=== PATIENT | female | born 1960 ===

== ENCOUNTER 2021-03-11 19:10 | Inpatient (IN) ==
[2021-03-11] MEDS ORDERED: ONDANSETRON 4 MG/2 ML VIAL IV PRN ×2 (19:25→20:48)
[2021-03-11] MEDS ORDERED: SENNOSIDES 1 TABLET PO PRN ×2 (19:25→20:48)
[2021-03-11] MEDS ORDERED: oxyCODONE/APAP 5/325MG TABLET PO PRN ×2 (19:25→20:48)
[2021-03-11] MEDS ORDERED: IPRATROPIUM/ALBUTEROL 3 ML AMPUL.NEB NEB PRN ×2 (19:25→20:48)
[2021-03-11] MEDS ORDERED: LACTULOSE 20 GM/30 ML ORAL.SOL PO PRN ×2 (19:25→20:48)
[2021-03-11] MEDS ORDERED: ACETAMINOPHEN 325 MG TABLET PO PRN ×2 (19:25→20:48)
[2021-03-11] MEDS ORDERED: cefTRIAXone 1 GM in DEXTROSE 5% IN WATER 50 ML IV SCH (19:30)
[2021-03-11] MEDS ORDERED: 0.9 % SODIUM CHLORIDE 1,000 ML IV SCH ×2 (19:30→20:48)
[2021-03-11] MEDS ORDERED: morphine 2 MG/ML VIAL IV PRN ×2 (19:32→20:48)
--- NOTE | 2021-03-11 19:47 | Internal Med History&Physical ---
HPI History of Present Illness Patient information: Note initiated : 03/11/21 at 7:47 pm Service Date, if different from initiated Date: [] Patient: Gina Simms a 60 y/o F admitted on for Spontaneous Bacterial Peritonitis. Chief Complaint: [SBP and hepatic encephalopathy] History of present illness: Ms. Simms is a 60 year old F history of recently diagnosed alcoholic cirrhosis, presenting with altered mental status, increased lethargy, and abdominal distention with pain. Patient has a chronic history of alcoholism and was recently diagnosed with alcoholic hepatitis on February 20, 2021. Extensive imaging modalities including MRI of the abdomen was done and no tumors or lesions were found. Patient was being referred to GI DrSamira And she refused to stop drinking alcohol upon recommendations by the GI specialist. She has been receiving multiple episodes of therapeutic paracentesis for her symptomatic ascites in the last episode was done 2 days ago. Today she was found by family member to have altered mental status, increasing lethargy, and she was also complaining of abdominal distention and pain. Last reported alcohol consumption's was couple days ago. She does not presented to outside ER and the working diagnosis of hepatic encephalopathy with spontaneous bacterial peritonitis was made. Serum ammonia level, right blood cell count, lactic acid, procalcitonin, serum creatinine were all found to be elevated with the exact n umber documented in the transfer paperwork. Serum sodium was reported to be in the 120s range. She was initially hypotensive with blood pressure in the 70s over 50s mmHg range, and after 30 cc/kg NS fluid boluses was given, her blood pressures response now back to the 90s over 70s mmHg range. Admission request made due to bed unavailability and the lack of capacity to perform therapeutic/diagnostic paracentesis. Review of Systems ROS unobtainable: due to mental status PFSH PFSH All Active Problems (Updated 03/11/21 @ 19:43 by Jesus Torrez MD) Stage 1 acute kidney injury (Acute) Clinical sepsis (Acute) Noncompliance with medication regimen (Acute) Coagulopathy (Acute) SBP (spontaneous bacterial peritonitis) (Acute) Hyponatremia (Acute) Hypokalemia (Acute) Alcoholic cirrhosis of liver with ascites (Acute) Hepatic encephalopathy (Acute) EXAM Constitutional General appearance: cooperative and no acute distress Head Head exam: Present atraumatic and normocephalic Eye Eye exam: Present EOMI and PERRL ENT ENT exam: Present mucous membranes moist, normal exam and normal external ear exam Neck Neck exam: Present normal inspection; Absent lymphadenopathy, tenderness and thyromegaly Respiratory Respiratory exam: Absent accessory muscle use, respiratory distress and wheezes Cardiovascular Cardiovascular exam: Present normal rate and rhythm; Absent JVD GI/Abdominal GI/Abdominal exam: Present normal bowel sounds, distended, hypoactive bowel sounds and organomegaly; Absent tenderness Additional comments: fluid wave Caput medusae Extremities Exam Extremities exam: Present full ROM, normal capillary refill and normal inspection; Absent tenderness Neurological Exam Neurological exam: Present alert, CN II-XII intact and oriented X3; Absent motor sensory deficit Psychiatric Psychiatric exam: Present normal affect and normal mood; Absent anxious and depressed Skin Skin exam: Present dry and intact Additional comments: jaundice Spider angiomata A/P Assessment and plan (1) Stage 1 acute kidney injury: Status: Acute (2) Clinical sepsis: Status: Acute (3) Noncompliance with medication regimen: Status: Acute (4) Coagulopathy: Status: Acute (5) SBP (spontaneous bacterial peritonitis): Status: Acute (6) Hyponatremia: Status: Acute (7) Hypokalemia: Status: Acute (8) Alcoholic cirrhosis of liver with ascites: Status: Acute (9) Hepatic encephalopathy: Status: Acute Narrative A/P Narrative: Assessment and Plans: 1. Severe sepsis with suspected spontaneous bacterial peritonitis: Admit to inpatient PCU Serial lactic acid Blood culture X2 Diagnostic and therapeutic paracentesis scheduled on 03/12/21 s/p 30cc/kg NS fluid bolus in the ED, followed by NS@70cc/hr Albumin already given in the ED cbc w/ auto diff in the morning to trend WBC Rocephin Tylenol PRN fever Zofran IV PRN nausea vomiting Since patient is noncompliant to potassium, will need to avoid Lasix or any other diuretics 2. Alcoholic cirrhosis with ascites and hepatic encephalopathy: Lactulose 20gm PO BID titrate to achieve 3 large BMs per day No need to trend serum ammonia level; instead focus on clinical mental status Non selective beta dewey as well as Spironolactone when blood pressure tolerate Continue to activities counselor patient to quit alcohol consumption 3. Coagulopathy secondary to alcoholic cirrhosis: Vitamin K 10mg IV once to be given in the ED in preparation for the planned paracentesis 4. Hyponatremia: s/p 30cc/kg NS fluid bolus in the ED, followed by NS@70cc/hr Since chronicity is unknown, goal of correction is 8-10 points in the first 24 hours BMP q6hr to trend serum sodium level 5. Stage 1 acute kidney injury: DDx: Hepatorenal syndrome Avoid nephrotoxic agents s/p 30cc/kg NS fluid bolus in the ED, followed by NS@70cc/hr BMP q6hr to trend kidney functions GI ppx: Protonix PO DVT ppx: SCDs Code status: Full Prognosis: Poor Disposition: inpatient PCU Time Spent With Patient Time: Total time spent is greater than 50% in coordination of care (as documented) at patient's floor/unit and/or counseling patient: Total time spent with greater than 50% in coordination of care (as documented) a t patient's floor/unit and/or counseling patient:: Greater than 35 minutes
[2021-03-11] MEDS ORDERED: LACTULOSE 20 GM/30 ML ORAL.SOL PO SCH ×2 (21:00)
[2021-03-11] MEDS ORDERED: PANTOPRAZOLE 40 MG TABLET PO SCH ×2 (21:00)
[2021-03-11] MEDS ORDERED: DOCUSATE SODIUM 100 MG CAPSULE PO SCH (21:00)
[2021-03-11] MEDS ORDERED: 0.9 % SODIUM CHLORIDE 10 ML SYRINGE IV SCH ×3 (22:00)
[2021-03-11] MEDS ORDERED: cefTRIAXone 1 GM VIAL IV SCH (22:00)
[2021-03-11] MEDS: DOCUSATE SODIUM 100 MG CAPSULE PO SCH (22:57)
[2021-03-11] MEDS ORDERED: PANTOPRAZOLE 40 MG VIAL IV ONE (23:21)
[2021-03-11] MEDS ORDERED: LACTULOSE 20 GM/30 ML ORAL.SOL ONE (23:21)
[2021-03-11] MEDS: PANTOPRAZOLE 40 MG VIAL IV SCH (23:35)
[2021-03-12 02:11] LABS: ALT/SGPT 58 U/L (<40); AST/SGOT 158 U/L (<32); Albumin 2.7 gm/dL (3.2-5.2); Alkaline Phosphatase 175 U/L (39-117); Bilirubin,Direct 9.3 mg/dL (<0.3); Bilirubin,Total 14.3 mg/dL (0.1-1.0); Blood Urea Nitrogen 28 mg/dL (6-20); Calcium 8.5 mg/dL (8.6-10.4); Carbon Dioxide 22 mmol/L (22-30); Chloride 86 mmol/L (96-108); Globulin 2.6 gm/dL (2.2-3.7); Glomerular Filtration Rate 80; Glucose 106 mg/dL (70-105); Lactate Dehydrogenase 151 U/L (135-225); Phosphorous 4.2 mg/dL (2.5-4.5); Triglycerides 87 mg/dL (<150); Uric Acid 3.7 mg/dL (2.5-8.0)
[2021-03-12 02:21] LABS: Appearance,Urine CLOUDY (Clear); Bilirubin,Urine Negative (Negative); Color,Urine AMBER; Culture Indicated,Urine No; Glucose,Urine (UA) Negative (Negative); Ketones,Urine Negative (Negative); Leukocyte Esterase,Urine Negative /ug (Negative); Mucus,Urine MANY /hpf; Nitrate,Urine Negative (Negative); Protein,Urine 30 mg/dL (Negative); Specific Gravity,Urine 1.026 (1.000-1.035); Urine Blood >=1.0 mg/dL (Negative); Urine Hyaline Cast 36 /lph (0-2); Urine RBC 63 /hpf (0-3); Urine Squamous Epithelial Cell 8 /hpf (0-4); Urine WBC 8 /hpf (0-4)
[2021-03-12] MEDS ORDERED: 0.9 % SODIUM CHLORIDE 10 ML SYRINGE IV SCH (06:00)
[2021-03-12 06:55] LABS: Basophils # (Auto) 0.07 K/mcL (0.00-0.20); Basophils % (Auto) 0.3 % (0.0-2.0); Eosinophils % (Auto) 0.8 % (0.0-7.0); Hematocrit 31.4 % (36.0-48.0); Hemoglobin 11.3 g/dL (12.0-15.0); Lymphocytes # (Auto) 1.07 K/mcL (1.50-4.80); Lymphocytes % (Auto) 4.5 % (15.0-49.0); Mean Cell Volume 110.6 fL (80.0-100.0); Mean Platelet Volume 9.6 fL (7.4-10.4); Monocytes # (Auto) 2.07 K/mcL (0.10-0.90); Monocytes % (Auto) 8.7 % (1.0-12.0); Neutrophils % (Auto) 85.7 % (38.0-78.0); Platelet Count 158 K/mcL (140-440); RBC 2.84 M/mcL (4.00-5.20); WBC 23.9 K/mcL (4.5-11.0)
[2021-03-12 07:29] LABS: ALT/SGPT 59 U/L (<40); AST/SGOT 155 U/L (<32); Albumin 2.4 gm/dL (3.2-5.2); Albumin/Globulin Ratio 0.9 (1.0-2.3); Alkaline Phosphatase 174 U/L (39-117); Bilirubin,Total 13.2 mg/dL (0.1-1.0); Blood Urea Nitrogen 29 mg/dL (6-20); Calcium 8.2 mg/dL (8.6-10.4); Carbon Dioxide 20 mmol/L (22-30); Chloride 90 mmol/L (96-108); Globulin 2.6 gm/dL (2.2-3.7); Glucose 102 mg/dL (70-105)
[2021-03-12] MEDS: PANTOPRAZOLE 40 MG VIAL IV SCH ×2 (07:54→17:07)
[2021-03-12] MEDS: DOCUSATE SODIUM 100 MG CAPSULE PO SCH ×2 (07:55→22:07)
[2021-03-12] MEDS ORDERED: LACTULOSE 20 GM/30 ML ORAL.SOL PR SCH ×2 (09:00→23:02)
--- NOTE | 2021-03-12 09:22 | Internal Med Progress Note ---
SUBJECTIVE Subjective Patient information: Note initiated : 03/12/21 at 9:16 am Service Date, if different from initiated Date: [] Patient: Gina Simms 60 y/o F admitted on 03/11/21 for Hepatic E ncephalopathy and SBP. Chief Complaint: [Hepatic encephalopathy, spontaneous bacterial peritonitis] 03/12/21: No bowel movement overnight. Afebrile. Cultures no growth to date. Serum sodium level 125 this morning. Otherwise there was no other major overnight events. Patient is non-verbal. Constitutional Vitals: Vital Signs Temp Pulse Resp BP Pulse Ox 36.7 C 105 H 21 82/65 92 03/12/21 08:01 03/12/21 06:01 03/12/21 08:01 03/12/21 08:01 03/12/21 08:01 Period Temp Pulse Resp BP Sys/Bailey Pulse Ox Last 24 Hr 36.3 C-36.7 C 104-109 17-25 78-111/46-74 88-97 Intake and Output 03/11/21 03/12/21 03/12/21 21:59 05:59 13:59 Intake Total 1999 133 Output Total 0 400 Balance 1999 Weight 56.699 kg Intake & Output: Intake & Output 03/11/21 03/12/21 03/12/21 21:59 05:59 13:59 Intake Total 1999 133 Output Total 0 400 Balance 1999 Weight 56.699 kg Intake: IV 133 Sodium Chloride 0.9% 1,000 ml @ 133 100 mls/hr IV .Q10H [facility] Rx#: [id number] IV - Manual Only 1999 Output: Void Amount 0 200 Emesis 200 Other: Urine Appearance Clear Urine Color Yellow Brown [place] Urine Odor Strong General appearance: cooperative and no acute distress Head Head exam: Present atraumatic and normocephalic Eye Eye exam: Present EOMI and PERRL ENT ENT exam: Present mucous membranes moist, normal exam and normal external ear exam Neck Neck exam: Present normal inspection; Absent lymphadenopathy, tenderness and thyromegaly Respiratory Respiratory exam: Absent accessory muscle use, respiratory distress and wheezes Cardiovascular Cardiovascular exam: Present normal rate and rhythm; Absent JVD GI/Abdominal GI/Abdominal exam: Present normal bowel sounds, distended, firm and organomegaly; Absent tenderness Additional comments: Caput Medusae Extremities Exam Extremities exam: Present full ROM, normal capillary refill and normal inspection; Absent tenderness Neurological Exam Neurological exam: Present altered and CN II-XII intact; Absent alert, motor sensory deficit and oriented X3 Additional comments: Lethargic Psychiatric Psychiatric exam: Present normal affect and normal mood; Absent anxious and depressed Skin Skin exam: Present dry and intact Additional comments: Jaundice Spider angiomata on face and chest wall OBJ DATA Labs CBC & Chem 7: 03/12/21 05:06 03/12/21 05:07 Labs: Abnormal Lab Results 03/12/21 03/12/21 03/12/21 05:07 05:06 01:42 WBC 23.9 H RBC 2.84 L Hgb 11.3 L Hct 31.4 L MCV 110.6 H MCH 39.8 H RDW 15.0 H Neut % (Auto) 85.7 H Lymph % (Auto) 4.5 L Lymph # (Auto) 1.07 L Collin # (Auto) 2.07 H Absolute Neutrophils 20.46 H VBG Lactic Acid Sodium 125 L 122 L Chloride 90 L 86 L Carbon Dioxide 20 L BUN 29 H 28 H Glucose 106 H Calcium 8.2 L 8.5 L Total Bilirubin 13.2 H 14.3 H Direct Bilirubin 9.3 H GGT 75 H AST 155 H 158 H ALT 59 H 58 H Alkaline Phosphatase 174 H 175 H Total Protein 5.0 L 5.3 L Albumin 2.4 L 2.7 L Albumin/Globulin Ratio 0.9 L Urine Appearance Urine Protein Urine Occult Blood Urine Urobilinogen Urine RBC Urine WBC Ur Squamous Epith Cells Hyaline Casts Urine Mucus 03/12/21 03/11/21 00:10 21:33 WBC RBC Hgb Hct MCV MCH RDW Neut % (Auto) Lymph % (Auto) Lymph # (Auto) Collin # (Auto) Absolute Neutrophils VBG Lactic Acid 3.0 H Sodium Chloride Carbon Dioxide BUN Glucose Calcium Total Bilirubin Direct Bilirubin GGT AST ALT Alkaline Phosphatase Total Protein Albumin Albumin/Globulin Ratio Urine Appearance Cloudy A Urine Protein 30 A Urine Occult Blood >=1.0 A Urine Urobilinogen 4.0 A Urine RBC 63 H Urine WBC 8 H Ur Squamous Epith Cells 8 H Hyaline Casts 36 H Urine Mucus Many A Meds: Medications Acetaminophen (Acetaminophen 325 Mg Tablet) 650 mg PO Q6HP PRN; Protocol PRN Reason: Per Pain Protocol/Fever > 101 Albuterol/Ipratropium (Ipratropium/Albuterol 3 Ml Ampul.Neb) 3 ml NEB Q4HRT PRN PRN Reason: Wheezing Ceftriaxone Sodium (Ceftriaxone 1 Gm Vial) 1 gm IV Q24H [facility] Last Admin: 03/11/21 22:35 Dose: 1 gm Documented by: Docusate Sodium (Docusate Sodium 100 Mg Capsule) 100 mg PO BID [facility] Last Admin: 03/12/21 07:55 Dose: Not Given Documented by: Sodium Chloride (Sodium Chloride 0.9%) 1,000 mls @ 70 mls/hr IV .[id number] [facility] Lactulose (Lactulose 20 Gm/30 Ml Oral.Talia) 10 gm PO DAILYP PRN PRN Reason: Constipation Lactulose (Lactulose 20 Gm/30 Ml Oral.Talia) 20 gm HI BID [facility] Morphine Sulfate (Morphine 2 Mg/Ml Vial) 2 mg IV Q4HP PRN; Protocol PRN Reason: Per Pain Protocol Ondansetron HCl (Ondansetron 4 Mg/2 Ml Vial) 4 mg IV Q4HP PRN; Protocol PRN Reason: Nausea And Vomiting Last Admin: 03/11/21 22:29 Dose: 4 mg Documented by: Oxycodone/Acetaminophen (Oxycodone/Apap 5/325mg Tablet) 1 tab PO Q4HP PRN; Protocol PRN Reason: Per Pain Protocol Pantoprazole Sodium (Pantoprazole 40 Mg Vial) 40 mg IV BIDAC [facility] Last Admin: 03/12/21 07:54 Dose: 40 mg Documented by: Senna (Sennosides 1 Tablet) 2 tab PO HSP PRN PRN Reason: Constipation Sodium Chloride (0.9 % Sodium Chloride 10 Ml Syringe) 10 ml IV Q8 [facility] Last Admin: 03/12/21 05:15 Dose: 10 ml Documented by: A/P Assessment and plan (1) Stage 1 acute kidney injury: Status: Acute (2) Clinical sepsis: Status: Acute (3) Noncompliance with medication regimen: Status: Acute (4) Coagulopathy: Status: Acute (5) SBP (spontaneous bacterial peritonitis): Status: Acute (6) Hyponatremia: Status: Acute (7) Hypokalemia: Status: Acute (8) Alcoholic cirrhosis of liver with ascites: Status: Acute (9) Hepatic encephalopathy: Status: Acute Narrative A/P Narrative: Assessment and Plans: 1. Severe sepsis with suspected spontaneous bacterial peritonitis: Stays in inpatient PCU Serial lactic acid Blood culture X2, no growth to date Diagnostic and therapeutic paracentesis scheduled on 03/12/21 s/p 30cc/kg NS fluid bolus in the ED, followed by NS@70cc/hr Albumin already given in the ED cbc w/ auto diff in the morning to trend WBC Rocephin Tylenol PRN fever Zofran IV PRN nausea vomiting Since patient is noncompliant to potassium, will need to avoid Lasix or any other diuretics 2. Alcoholic cirrhosis with ascites and hepatic encephalopathy: Lactulose 20gm PO BID titrate to achieve 3 large BMs per day No need to trend serum ammonia level; instead focus on clinical mental status Non selective beta dewey as well as Spironolactone when blood pressure tolerate Continue to res counselor patient to quit alcohol consumption Speech therapy swallowing evaluation 3. Coagulopathy secondary to alcoholic cirrhosis: Vitamin K 10mg IV once to be given in the ED in preparation for the planned paracentesis PT INR daily 4. Hyponatremia: s/p 30cc/kg NS fluid bolus in the ED, followed by NS@70cc/hr Since chronicity is unknown, goal of correction is 8-10 points in the first 24 hours BMP q6hr to trend serum sodium level 5. Stage 1 acute kidney injury: DDx: Hepatorenal syndrome Avoid nephrotoxic agents s/p 30cc/kg NS fluid bolus in the ED, followed by NS@70cc/hr BMP q6hr to trend kidney functions GI ppx: Protonix PO DVT ppx: SCDs Code status: Full Prognosis: Poor Disposition: inpatient PCU Time Spent With Patient Time: Total time spent is greater than 50% in coordination of care (as documented) at patient's floor/unit and/or counseling patient: QUALITY Stroke Symptom Onset Unknown: No VTE Deep Vein Thrombosis/Pulmonary Embolism Present on Admission: No
[2021-03-12 10:47] LABS: INR 1.9 (0.9-1.1); Prothrombin Time 22.6 sec (11.9-14.5)
[2021-03-12] MEDS: 0.9 % SODIUM CHLORIDE 1,000 ML IV SCH ×2 (12:01→14:12)
[2021-03-12] MEDS ORDERED: NOREPINEPHRINE BITARTRATE 16 MG in 0.9 % SODIUM CHLORIDE 234 ML IV PRN ×2 (13:00→13:45)
[2021-03-12] MEDS ORDERED: 0.9 % SODIUM CHLORIDE 250 ML IV SCH (13:00)
[2021-03-12] MEDS ORDERED: ACETAMINOPHEN 325 MG TABLET PO PRN (13:45)
[2021-03-12] MEDS ORDERED: IPRATROPIUM/ALBUTEROL 3 ML AMPUL.NEB NEB PRN (13:45)
[2021-03-12] MEDS ORDERED: ONDANSETRON 4 MG/2 ML VIAL IV PRN (13:45)
[2021-03-12] MEDS ORDERED: 0.9 % SODIUM CHLORIDE 1,000 ML IV SCH (13:45)
[2021-03-12] MEDS ORDERED: LACTULOSE 20 GM/30 ML ORAL.SOL PO PRN (13:45)
[2021-03-12] MEDS ORDERED: oxyCODONE/APAP 5/325MG TABLET PO PRN (13:45)
[2021-03-12] MEDS ORDERED: SENNOSIDES 1 TABLET PO PRN (13:45)
[2021-03-12] MEDS: 0.9 % SODIUM CHLORIDE 250 ML IV SCH (14:10)
[2021-03-12] MEDS: 0.9 % SODIUM CHLORIDE 10 ML SYRINGE IV SCH ×2 (14:11→22:26)
--- NOTE | 2021-03-12 14:39 | Ultrasound Report ---
History: Liver failure with recurrent ascites TECHNIQUE: A moderate amount of ascites is seen in the abdomen and pelvis. Largest pocket was localized laterally in the right mid abdomen. The overlying skin was prepped with ChloraPrep then anesthetized with 1% lidocaine. Using ultrasound guidance a multi sidehole drainage catheter was inserted. 3.9 L of yellowish-orange fluid was removed. Some of the fluid was sent to laboratory for analysis. Most of the visualized fluid was aspirated. She tolerated the procedure well without complication. IMPRESSION: Successful paracentesis removing 3.9 L fluid Interpreted and Authenticated by: Filiberto Giron 03/12/21
[2021-03-12] MEDS ORDERED: cefTRIAXone 1 GM VIAL IV SCH (15:00)
[2021-03-12 15:16] LABS: Glucose,Peritoneal Fluid 63 mg/dL; Total Protein,Peritoneal Fluid 1.6 gm/dL
[2021-03-12 15:43] LABS: Monocyte,Peritoneal Fluid 32 %; Neutrophils,Peritoneal Fluid 67 %; Nucleated Cel,Peritoneal Fluid 7335 /cumm; RBC,Peritoneal Fluid <50,000 /cumm
[2021-03-12 16:37] LABS: Blood Urea Nitrogen 32 mg/dL (6-20); Carbon Dioxide 20 mmol/L (22-30); Chloride 90 mmol/L (96-108); Glomerular Filtration Rate 80; Glucose 88 mg/dL (70-105)
[2021-03-12] MEDS: MEROPENEM 1 GM in 0.9 % SODIUM CHLORIDE 50 ML IV SCH (19:10)
[2021-03-12] MEDS: DEXTROSE 5%-NS 1,000 ML IV SCH (19:26)
[2021-03-12] MEDS ORDERED: cefTRIAXone 1 GM in DEXTROSE 5% IN WATER 50 ML IV SCH (19:30)
[2021-03-12] MEDS: LACTULOSE 20 GM/30 ML ORAL.SOL PR SCH (20:26)
[2021-03-12] MEDS ORDERED: GABAPENTIN 100 MG CAPSULE PO SCH (21:00)
[2021-03-12] MEDS ORDERED: PREGABALIN 150 MG CAPSULE PO SCH (21:00)
[2021-03-12 21:36] LABS: Blood Urea Nitrogen 33 mg/dL (6-20); Calcium 7.8 mg/dL (8.6-10.4); Carbon Dioxide 19 mmol/L (22-30); Chloride 92 mmol/L (96-108); Glomerular Filtration Rate 80; Glucose 90 mg/dL (70-105)
[2021-03-12] MEDS: GABAPENTIN 100 MG CAPSULE PO SCH (22:07)
[2021-03-13] MEDS: MEROPENEM 1 GM in 0.9 % SODIUM CHLORIDE 50 ML IV SCH ×4 (01:13→21:16)
[2021-03-13] MEDS: 0.9 % SODIUM CHLORIDE 250 ML IV SCH ×2 (02:50→13:58)
[2021-03-13 04:04] LABS: Blood Urea Nitrogen 34 mg/dL (6-20); Calcium 7.8 mg/dL (8.6-10.4); Carbon Dioxide 19 mmol/L (22-30); Chloride 98 mmol/L (96-108); Glomerular Filtration Rate 80; Glucose 166 mg/dL (70-105)
[2021-03-13] MEDS: 0.9 % SODIUM CHLORIDE 10 ML SYRINGE IV SCH ×5 (05:20→21:28)
[2021-03-13] MEDS: PANTOPRAZOLE 40 MG VIAL IV SCH ×2 (07:21→17:29)
[2021-03-13 07:22] LABS: POC INR 1.4 (0.8-1.2); POC Pro Time 16.8 sec (11.9-14.5)
[2021-03-13 07:32] LABS: Basophils # (Auto) 0.09 K/mcL (0.00-0.20); Basophils % (Auto) 0.4 % (0.0-2.0); Eosinophils # (Auto) 0.01 K/mcL (0.00-0.70); Eosinophils % (Auto) 0 % (0.0-7.0); Hematocrit 32.8 % (36.0-48.0); Hemoglobin 11.9 g/dL (12.0-15.0); Lymphocytes # (Auto) 1.39 K/mcL (1.50-4.80); Lymphocytes % (Auto) 6.6 % (15.0-49.0); Mean Cell Volume 110.4 fL (80.0-100.0); Mean Corpuscular HGB Conc 36.3 g/dL (31.0-36.0); Mean Platelet Volume 9.8 fL (7.4-10.4); Monocytes # (Auto) 2.09 K/mcL (0.10-0.90); Monocytes % (Auto) 9.9 % (1.0-12.0); Neutrophils % (Auto) 83.1 % (38.0-78.0); Platelet Count 157 K/mcL (140-440); RBC 2.97 M/mcL (4.00-5.20); Red Cell Distribution Width 15.5 % (11.5-14.5)
[2021-03-13] MEDS ORDERED: MIDAZOLAM 2 MG/2 ML VIAL ONE (09:25)
[2021-03-13] MEDS ORDERED: MIDAZOLAM 2 MG/2 ML VIAL IV ONE (09:45)
[2021-03-13] MEDS: DOCUSATE SODIUM 100 MG CAPSULE PO SCH ×2 (09:53→20:59)
--- NOTE | 2021-03-13 10:05 | XRay Report ---
HISTORY: Central line placement FINDINGS: A right internal jugular catheter has been inserted. The tip is in the superior vena cava at the level of the azygos arch. There is no pneumothorax or widening in the mediastinum. There is a diffuse ill-defined alveolar infiltrate in the right lung, predominantly involving the lower lobe. Subtle increased interstitial lung markings are present in the left lung. There is no pleural effusion. The heart size is normal. IMPRESSION: No complication following right internal jugular insertion Pneumonia, predominantly involving the right lower lobe ICU was called with the report Interpreted and Authenticated by: Filiberto Giron 03/13/21
[2021-03-13] MEDS ORDERED: DEXTROSE 50% 50 ML VIAL IV PRN (10:17)
[2021-03-13] MEDS ORDERED: ALBUMIN HUMAN 37.5 GM/150 ML BAG IV ONE (10:17)
[2021-03-13] MEDS ORDERED: DEXTROSE 31 GM ORAL.SUSP PO PRN (10:17)
--- NOTE | 2021-03-13 10:30 | Internal Med Progress Note ---
SUBJECTIVE Subjective Patient information: Note initiated : 03/13/21 at 10:22 am Service Date, if different from initiated Date: [] Patient: Gina Simms 60 y/o F admitted on 03/11/21 for Hepatic Encephalopathy and SBP. Chief Complaint: [Septic shock from SBP] 03/12/21: No bowel movement overnight. Afebrile. Cultures no growth to date. Serum sodium level 125 this morning. Otherwise there was no other major overnight events. Patient is non-verbal. 03/13/21: Levophed drip was started, and as a result patient was being transferred to ICU. Paracentesis was performed and 3.9L ascites fluid removed. Levophed drip was started. Right IVJ central line inserted this morning. No bowel movement overnight. Blood cultures no growth to date. Patient is nonverbal. Constitutional Vitals: Vital Signs Temp Pulse Resp BP Pulse Ox 36.9 C 105 H 20 77/60 90 03/13/21 08:01 03/12/21 06:01 03/13/21 08:01 03/13/21 08:01 03/13/21 08:01 Period Temp Pulse Resp BP Sys/Bailey Pulse Ox Last 24 Hr 35.7 C-37.4 C 13-28 71-123/36-88 90-96 Intake and Output 03/12/21 03/13/21 03/13/21 21:59 05:59 13:59 Intake Total 667 776 61 Output Total 330 194 63 Balance 337 582 -2 Weight 53.297 kg Intake & Output: Intake & Output 03/12/21 03/13/21 03/13/21 21:59 05:59 13:59 Intake Total 667 776 61 Output Total 330 194 63 Balance 337 582 -2 Weight 53.297 kg Intake: IV 667 776 61 Sodium Chloride 0.9% 1,000 ml @ 517 70 mls/hr IV .[id number] LAYLA Rx#: [id number] Sodium Chloride 0.9% 250 ml @ 8 250 20 mls/hr IV .[id number] LAYLA Rx#: [id number] Dextrose 5%-Ns IV Solution 1, 410 000 ml @ 70 mls/hr IV .[id number] LAYLA Rx#:[id number] Merrem 1 gm In Sodium Chloride 50 50 50 0.9% 50 ml @ 100 mls/hr IV Q8 LAYLA Rx#:[id number] Levophed 16 mg In Sodium 92 66 11 Chloride 0.9% 234 ml @ 10 MCG/ MIN 9.375 mls/hr IV Q24HP PRN Rx#:[id number] Output: Urine Catheter Amount 330 194 63 Other: Urine Appearance Sediment Clear Clear Uretheral (Vivar) Clear Clear Urine Color Dark Edna Dark Edna Yellow Brown Rye Uretheral (Vivar) Dark Yellow Dark Edna Rye Rye Urine Odor Normal General appearance: cooperative and no acute distress Head Head exam: Present atraumatic and normocephalic Eye Eye exam: Present EOMI and PERRL ENT ENT exam: Present mucous membranes moist, normal exam and normal external ear exam Neck Neck exam: Present normal inspection; Absent lymphadenopathy, tenderness and thyromegaly Respiratory Respiratory exam: Absent accessory muscle use, respiratory distress and wheezes Cardiovascular Cardiovascular exam: Present normal rate and rhythm; Absent JVD GI/Abdominal GI/Abdominal exam: Present normal bowel sounds, distended and firm; Absent org anomegaly and tenderness Additional comments: Capt sylvain PIMENTEL Additional comments: Vivar catheter in place Extremities Exam Extremities exam: Present full ROM, normal capillary refill and normal inspectio n; Absent tenderness Neurological Exam Neurological exam: Present altered and CN II-XII intact; Absent motor sensory deficit Additional comments: Lethargic Psychiatric Psychiatric exam: Present normal affect and normal mood; Absent anxious and depressed Skin Skin exam: Present dry and intact Additional comments: Jaundice Spider angiomata OBJ DATA Labs CBC & Chem 7: 03/13/21 05:25 03/13/21 02:32 Labs: Abnormal Lab Results 03/13/21 03/13/21 03/13/21 07:08 05:25 02:32 WBC 21.0 H RBC 2.97 L Hgb 11.9 L Hct 32.8 L MCV 110.4 H MCH 40.1 H MCHC 36.3 H RDW 15.5 H Neut % (Auto) 83.1 H Lymph % (Auto) 6.6 L Lymph # (Auto) 1.39 L [place] # (Auto) 2.09 H Absolute Neutrophils 17.45 H POC PT 16.8 H PT POC INR 1.4 H INR VBG Lactic Acid Sodium 129 L Chloride Carbon Dioxide 19 L BUN 34 H Glucose 166 H Calcium 7.8 L Total Bilirubin Direct Bilirubin GGT AST ALT Alkaline Phosphatase Total Protein Albumin Albumin/Globulin Ratio Urine Appearance Urine Protein Urine Occult Blood Urine Urobilinogen Urine RBC Urine WBC Ur Squamous Epith Cells Hyaline Casts Urine Mucus 03/12/21 03/12/21 03/12/21 20:10 15:00 09:48 WBC RBC Hgb Hct MCV MCH MCHC RDW Neut % (Auto) Lymph % (Auto) Lymph # (Auto) [place] # (Auto) Absolute Neutrophils POC PT PT 22.6 H POC INR INR 1.9 H VBG Lactic Acid Sodium 125 L 124 L Chloride 92 L 90 L Carbon Dioxide 19 L 20 L BUN 33 H 32 H Glucose Calcium 7.8 L 8.0 L Total Bilirubin Direct Bilirubin GGT AST ALT Alkaline Phosphatase Total Protein Albumin Albumin/Globulin Ratio Urine Appearance Urine Protein Urine Occult Blood Urine Urobilinogen Urine RBC Urine WBC Ur Squamous Epith Cells Hyaline Casts Urine Mucus 03/12/21 03/12/21 03/12/21 05:07 05:06 01:42 WBC 23.9 H RBC 2.84 L Hgb 11.3 L Hct 31.4 L MCV 110.6 H MCH 39.8 H MCHC RDW 15.0 H Neut % (Auto) 85.7 H Lymph % (Auto) 4.5 L Lymph # (Auto) 1.07 L [place] # (Auto) 2.07 H Absolute Neutrophils 20.46 H POC PT PT POC INR INR VBG Lactic Acid Sodium 125 L 122 L Chloride 90 L 86 L Carbon Dioxide 20 L BUN 29 H 28 H Glucose 106 H Calcium 8.2 L 8.5 L Total Bilirubin 13.2 H 14.3 H Direct Bilirubin 9.3 H GGT 75 H AST 155 H 158 H ALT 59 H 58 H Alkaline Phosphatase 174 H 175 H Total Protein 5.0 L 5.3 L Albumin 2.4 L 2.7 L Albumin/Globulin Ratio 0.9 L Urine Appearance Urine Protein Urine Occult Blood Urine Urobilinogen Urine RBC Urine WBC Ur Squamous Epith Cells Hyaline Casts Urine Mucus 03/12/21 03/11/21 00:10 21:33 WBC RBC Hgb Hct MCV MCH MCHC RDW Neut % (Auto) Lymph % (Auto) Lymph # (Auto) [place] # (Auto) Absolute Neutrophils POC PT PT POC INR INR VBG Lactic Acid 3.0 H Sodium Chloride Carbon Dioxide BUN Glucose Calcium Total Bilirubin Direct Bilirubin GGT AST ALT Alkaline Phosphatase Total Protein Albumin Albumin/Globulin Ratio Urine Appearance Cloudy A Urine Protein 30 A Urine Occult Blood >=1.0 A Urine Urobilinogen 4.0 A Urine RBC 63 H Urine WBC 8 H Ur Squamous Epith Cells 8 H Hyaline Casts 36 H Urine Mucus Many A Meds: Medications Acetaminophen (Acetaminophen 325 Mg Tablet) 650 mg PO Q6HP PRN; Protocol PRN Reason: Per Pain Protocol/Fever > 101 Albuterol/Ipratropium (Ipratropium/Albuterol 3 Ml Ampul.Neb) 3 ml NEB Q4HRT PRN PRN Reason: Wheezing Dextrose (Dextrose 50% 50 Ml Vial) 0 ml IV UD PRN PRN Reason: Hypoglycemia Diagnostic Test (Pha) (Accu-Chek 1 Each Strip) 1 each FS ACHS L[facility]LA Docusate Sodium (Docusate Sodium 100 Mg Capsule) 100 mg PO BID LAYLA Last Admin: 03/13/21 09:53 Dose: Not Given Documented by: Gabapentin (Gabapentin 100 Mg Capsule) 100 mg PO HS LAYLA Last Admin: 03/12/21 22:07 Dose: Not Given Documented by: Glucose (Dextrose 31 Gm Oral.Susp) 15 gm PO PRN PRN PRN Reason: Hypoglycemia Sodium Chloride (Sodium Chloride 0.9%) 250 mls @ 20 mls/hr IV .[id number] LAYLA Last Admin: 03/13/21 02:50 Dose: 20 mls/hr Documented by: Norepinephrine Bitartrate 16 (mg/ Sodium Chloride) 250 mls @ 9.375 mls/hr IV Q24HP PRN; Protocol PRN Reason: Hypotension Meropenem 1 gm/ Sodium (Chloride) 50 mls @ 100 mls/hr IV Q8 LAYLA; Protocol Last Infusion: 03/13/21 07:05 Dose: Infused Documented by: Dextrose/Sodium Chloride (Dextrose 5%-Ns Iv Solution) 1,000 mls @ 70 mls/hr IV .[id number] [facility]LA Last Infusion: 03/13/21 01:45 Dose: 70 mls/hr Documented by: Albumin Human (Buminate) 37.5 gm in 150 mls @ 150 mls/hr IV ONCE ONE Stop: 03/13/21 11:16 Insulin Human Lispro (Insulin Lispro 1 Unit/0.01 Ml Unit) 0 unit SQ Q6 LAYLA; Protocol Lactulose (Lactulose 20 Gm/30 Ml Oral.Talia) 20 gm SD BID LAYLA Last Admin: 03/12/21 20:26 Dose: 20 gm Documented by: Lactulose (Lactulose 20 Gm/30 Ml Oral.Talia) 10 gm PO DAILYP PRN PRN Reason: Constipation Last Admin: 03/13/21 04:33 Dose: 10 gm Documented by: Morphine Sulfate (Morphine 2 Mg/Ml Vial) 2 mg IV Q4HP PRN; Protocol PRN Reason: Per Pain Protocol Ondansetron HCl (Ondansetron 4 Mg/2 Ml Vial) 4 mg IV Q4HP PRN; Protocol PRN Reason: Nausea And Vomiting Oxycodone/Acetaminophen (Oxycodone/Apap 5/325mg Tablet) 1 tab PO Q4HP PRN; Protocol PRN Reason: Per Pain Protocol Pantoprazole Sodium (Pantoprazole 40 Mg Vial) 40 mg IV BIDAC [facility] Last Admin: 03/13/21 07:21 Dose: 40 mg Documented by: Senna (Sennosides 1 Tablet) 2 tab PO HSP PRN PRN Reason: Constipation Sodium Chloride (0.9 % Sodium Chloride 10 Ml Syringe) 10 ml IV Q8 [facility] Last Admin: 03/13/21 05:20 Dose: 10 ml Documented by: Sodium Chloride (0.9 % Sodium Chloride 10 Ml Syringe) 10 ml IV Q12 LAYLA Sodium Chloride (0.9 % Sodium Chloride 10 Ml Syringe) 10 ml IV UD PRN PRN Reason: Flush A/P Assessment and plan (1) Stage 1 acute kidney injury: Status: Acute (2) Clinical sepsis: Status: Acute (3) Noncompliance with medication regimen: Status: Acute (4) Coagulopathy: Status: Acute (5) SBP (spontaneous bacterial peritonitis): Status: Acute (6) Hyponatremia: Status: Acute (7) Hypokalemia: Status: Acute (8) Alcoholic cirrhosis of liver with ascites: Status: Acute (9) Hepatic encephalopathy: Status: Acute Narrative A/P Narrative: Assessment and Plans: 1. Severe sepsis with suspected spontaneous bacterial peritonitis: Stays in inpatient PCU Serial lactic acid Blood culture X2, no growth to date Diagnostic and therapeutic paracentesis on 03/12/21 with 3.9L ascites fluid removed. Neutrophile count 67<250, suggests AGAINST SBP. Patient still meets sepsis criteria. Decide to keep broad spectrum antibiotics. SAAG 1.6 g/dL suggestive of portal HTN. D5NS@70cc/hr Levophed drip titrate to keep MAP >=60mmHg Albumin transfusion cbc w/ auto diff in the morning to trend WBC Merropenem Tylenol PRN fever Zofran IV PRN nausea vomiting Since patient is noncompliant to potassium, will need to avoid Lasix or any other diuretics 2. 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 Coagulopathy secondary to alcoholic cirrhosis: Vitamin K 10mg IV once to be given in the ED in preparation for the planned paracentesis PT INR daily 4. Hyponatremia: D5NS@70cc/hr Since chronicity is unknown, goal of correction is 8-10 points in the first 24 hours BMP q6hr to trend serum sodium level 5. Stage 1 acute kidney injury: DDx: Hepatorenal syndrome Avoid nephrotoxic agents s/p 30cc/kg NS fluid bolus in the ED, followed by NS@70cc/hr BMP q6hr to trend kidney functions GI ppx: Protonix IV DVT ppx: SCDs Code status: Full Prognosis: Poor Disposition: inpatient PCU Time Spent With Patient Time: Total time spent is greater than 50% in coordination of care (as documented) at patient's floor/unit and/or counseling patient: QUALITY Stroke Symptom Onset Unknown: No VTE Deep Vein Thrombosis/Pulmonary Embolism Present on Admission: No
[2021-03-13 10:59] LABS: Blood Urea Nitrogen 34 mg/dL (6-20); Calcium 7.5 mg/dL (8.6-10.4); Carbon Dioxide 20 mmol/L (22-30); Chloride 97 mmol/L (96-108); Glomerular Filtration Rate 95; Glucose 192 mg/dL (70-105)
[2021-03-13] MEDS: LACTULOSE 20 GM/30 ML ORAL.SOL PR SCH ×2 (11:13→21:02)
--- NOTE | 2021-03-13 12:11 | Procedure Note ---
Procedures - Central Line Placement Right IJ Date of Procedure: 03/13/21 Time out performed: Yes Patient placed on monitor/pulse ox: Yes MD prep: mask, sterile gown, sterile gloves, cap Central line prep: 2% Chlorhexidine scrub, proper hand hygiene Local anesthesia used: lidocaine 1% Amount of anesthesia used (mls): 3 Ultrasound used for placement: Yes Central line lumen inserted: quad, 16 cm Post procedure: sutured in place, good blood return, all ports aspirated, flushed, capped, sterile dressing applied Post procedure x-ray: tip of catheter in good position Patient tolerated procedure: well
[2021-03-13] MEDS: DEXTROSE 5%-NS 1,000 ML IV SCH (12:35)
[2021-03-13] MEDS: INSULIN LISPRO 1 UNIT/0.01 ML UNIT SQ SCH ×2 (12:48→17:52)
[2021-03-13] MEDS: NOREPINEPHRINE BITARTRATE 16 MG in 0.9 % SODIUM CHLORIDE 234 ML IV SCH (13:57)
[2021-03-13] MEDS: morphine 2 MG/ML VIAL IV PRN (15:18)
[2021-03-13 15:36] LABS: Blood Urea Nitrogen 32 mg/dL (6-20); Carbon Dioxide 21 mmol/L (22-30); Chloride 98 mmol/L (96-108); Glomerular Filtration Rate 100; Glucose 157 mg/dL (70-105)
[2021-03-13] MEDS ORDERED: POTASSIUM CHLORIDE 20 MEQ in DEXTROSE 5% IN WATER 100 ML IV ONE (16:21)
[2021-03-13] MEDS ORDERED: POTASSIUM CHLORIDE 20 MEQ/10 ML VIAL IV ONE (17:24)
[2021-03-13] MEDS: 0.9 % SODIUM CHLORIDE 10 ML SYRINGE IV PRN (19:36)
--- NOTE | 2021-03-13 19:56 | XRay Report ---
HISTORY: Abdominal pain, concerning for bowel obstruction FINDINGS: There is moderate amount of gas in both large and small intestine. There are couple loops of dilated small intestine in the left lower quadrant which measure up to 4.4 cm in diameter. The colon is not abnormally distended. Stomach is decompressed. Air-fluid levels and free intra-abdominal air cannot be detected on a supine image. There is no apparent soft tissue mass or abnormal calcification. IMPRESSION: Asymmetric dilatation of the small intestine. This could be an ileus. Early or incomplete small bowel obstruction cannot be excluded. Interpreted and Authenticated by: Filiberto Giron 03/13/21
[2021-03-13] MEDS: GABAPENTIN 100 MG CAPSULE PO SCH (20:59)
[2021-03-13 21:48] LABS: ALT/SGPT 47 U/L (<40); AST/SGOT 112 U/L (<32); Albumin 2.5 gm/dL (3.2-5.2); Albumin/Globulin Ratio 1.3 (1.0-2.3); Alkaline Phosphatase 127 U/L (39-117); Bilirubin,Total 9.5 mg/dL (0.1-1.0); Blood Urea Nitrogen 30 mg/dL (6-20); Calcium 8.1 mg/dL (8.6-10.4); Carbon Dioxide 20 mmol/L (22-30); Chloride 103 mmol/L (96-108); Glomerular Filtration Rate 100; Glucose 127 mg/dL (70-105)
[2021-03-14] MEDS: INSULIN LISPRO 1 UNIT/0.01 ML UNIT SQ SCH ×5 (00:39→23:37)
[2021-03-14] MEDS: 0.9 % SODIUM CHLORIDE 250 ML IV SCH ×2 (02:56→17:35)
[2021-03-14] MEDS: DEXTROSE 5%-NS 1,000 ML IV SCH ×2 (02:59→17:29)
[2021-03-14] MEDS: 0.9 % SODIUM CHLORIDE 10 ML SYRINGE IV PRN ×4 (03:15→23:10)
[2021-03-14 04:04] LABS: ALT/SGPT 49 U/L (<40); AST/SGOT 115 U/L (<32); Albumin 2.3 gm/dL (3.2-5.2); Albumin/Globulin Ratio 1.1 (1.0-2.3); Alkaline Phosphatase 138 U/L (39-117); Bilirubin,Total 9.6 mg/dL (0.1-1.0); Blood Urea Nitrogen 27 mg/dL (6-20); Calcium 7.7 mg/dL (8.6-10.4); Carbon Dioxide 22 mmol/L (22-30); Chloride 106 mmol/L (96-108); Globulin 2.1 gm/dL (2.2-3.7); Glomerular Filtration Rate 106; Glucose 138 mg/dL (70-105)
[2021-03-14 04:08] LABS: Basophils # (Auto) 0.03 K/mcL (0.00-0.20); Basophils % (Auto) 0.2 % (0.0-2.0); Eosinophils # (Auto) 0.01 K/mcL (0.00-0.70); Eosinophils % (Auto) 0.1 % (0.0-7.0); Hematocrit 28.3 % (36.0-48.0); Hemoglobin 10.3 g/dL (12.0-15.0); Lymphocytes # (Auto) 1.21 K/mcL (1.50-4.80); Lymphocytes % (Auto) 7.7 % (15.0-49.0); Mean Cell Volume 111.9 fL (80.0-100.0); Mean Corpuscular HGB Conc 36.4 g/dL (31.0-36.0); Mean Platelet Volume 9.7 fL (7.4-10.4); Monocytes # (Auto) 1.31 K/mcL (0.10-0.90); Monocytes % (Auto) 8.3 % (1.0-12.0); Platelet Count 104 K/mcL (140-440); RBC 2.53 M/mcL (4.00-5.20); Red Cell Distribution Width 15.6 % (11.5-14.5); WBC 15.7 K/mcL (4.5-11.0)
[2021-03-14 04:08] LABS: INR 2.1 (0.9-1.1); Prothrombin Time 24.4 sec (11.9-14.5)
[2021-03-14 05:34] LABS: Neutrophils % (Auto) 83.7 % (38.0-78.0)
[2021-03-14] MEDS: MEROPENEM 1 GM in 0.9 % SODIUM CHLORIDE 50 ML IV SCH ×3 (05:41→22:38)
[2021-03-14] MEDS: 0.9 % SODIUM CHLORIDE 10 ML SYRINGE IV SCH ×7 (05:45→21:28)
[2021-03-14] MEDS: PANTOPRAZOLE 40 MG VIAL IV SCH ×2 (06:50→16:52)
[2021-03-14] MEDS: DOCUSATE SODIUM 100 MG CAPSULE PO SCH ×2 (07:25→21:23)
--- NOTE | 2021-03-14 09:19 | Internal Med Progress Note ---
SUBJECTIVE Subjective Patient information: Note initiated : 03/14/21 at 9:16 am Service Date, if different from initiated Date: [] Patient: Gina Simms 60 y/o F admitted on 03/11/21 for Hepatic E ncephalopathy and SBP. Chief Complaint: [Hepatic encephalopathy, spontaneous bacterial peritonitis] 03/12/21: No bowel movement overnight. Afebrile. Cultures no growth to date. Serum sodium level 125 this morning. Otherwise there was no other major overnight events. Patient is non-verbal. 03/13/21: Levophed drip was started, and as a result patient was being transferred to ICU. Paracentesis was performed and 3.9L ascites fluid removed. Levophed drip was started. Right IVJ central line inserted this morning. No bowel movement overnight. Blood cultures no growth to date. Patient is nonverbal. 03/14/21: Right IVJ central line was inserted on 03/13/21. Levophed drip currently running at 3mcg/min. No bowel movement overnight. KUB suggestive of ileus and cannot rule out bowel obstruction. Blood and ascites cultures no growth to date. Patient is nonverbal. Constitutional Vitals: Vital Signs Temp Pulse Resp BP Pulse Ox 37.2 C 103 H 14 94/61 94 03/14/21 09:00 03/14/21 06:00 03/14/21 09:00 03/14/21 09:00 03/14/21 09:00 Period Temp Pulse Resp BP Sys/Bailey Pulse Ox Last 24 Hr 35.5 C-37.2 C 100-107 11-29 80-125/52-107 90-99 Intake and Output 03/13/21 03/14/21 03/14/21 21:59 05:59 13:59 Intake Total 225 1250 50 Output Total 267 241 128 Balance -42 1009 -78 Weight 54.703 kg Intake & Output: Intake & Output 03/13/21 03/14/21 03/14/21 21:59 05:59 13:59 Intake Total 225 1250 50 Output Total 267 241 128 Balance -42 1009 -78 Weight 54.703 kg Intake: IV 225 1250 50 Sodium Chloride 0.9% 250 ml @ 250 20 mls/hr IV .[id number] [facility] Rx#: [id number] Dextrose 5%-Ns IV Solution 1, 1000 000 ml @ 70 mls/hr IV .[id number] [facility] Rx#:[id number] Merrem 1 gm In Sodium Chloride 100 50 0.9% 50 ml @ 100 mls/hr IV Q8 [facility] Rx#:[id number] Levophed 16 mg In Sodium 15 Chloride 0.9% 234 ml @ 10 MCG/ MIN 9.375 mls/hr IV Q24H [facility] Rx #:[id number] Potassium Chloride 20 Meq In 110 Dextrose 5% in Water 100 ml @ 55 mls/hr IV ONCE ONE Rx#: [id number] Output: Urine Catheter Amount 267 241 128 Other: Urine Appearance Clear Sediment Uretheral (Vivar) Clear Clear Urine Color Dark Edna Dark Edna [place] Uretheral (Vivar) Dark Edna Dark Edna [place] General appearance: cooperative and no acute distress Head Head exam: Present atraumatic and normocephalic Eye Eye exam: Present EOMI and PERRL ENT ENT exam: Present mucous membranes moist, normal exam and normal external ear exam Neck Neck exam: Present normal inspection; Absent lymphadenopathy, tenderness and thyromegaly Respiratory Respiratory exam: Absent accessory muscle use, respiratory distress and wheezes Cardiovascular Cardiovascular exam: Present normal rate and rhythm; Absent JVD GI/Abdominal GI/Abdominal exam: Present normal bowel sounds, distended, firm and organomegaly; Absent tenderness Additional comments: Caput medusae Extremities Exam Extremities exam: Present full ROM, normal capillary refill and normal inspection; Absent tenderness Neurological Exam Neurological exam: Present altered and CN II-XII intact; Absent alert, motor sensory deficit and oriented X3 Psychiatric Psychiatric exam: Present normal affect and normal mood; Absent anxious and depressed Skin Skin exam: Present dry and intact Additional comments: Jaundice Spider angiomata OBJ DATA Labs CBC & Chem 7: 03/14/21 03:21 03/14/21 03:20 Labs: Abnormal Lab Results 03/14/21 03/14/21 03/14/21 03:21 03:20 03:20 WBC 15.7 H RBC 2.53 L Hgb 10.3 L Hct 28.3 L MCV 111.9 H MCH 40.7 H MCHC 36.4 H RDW 15.6 H Plt Count 104 L Neut % (Auto) 83.7 H Lymph % (Auto) 7.7 L Lymph # (Auto) 1.21 L [place] # (Auto) 1.31 H Absolute Neutrophils 13.14 H POC PT PT 24.4 H POC INR INR 2.1 H VBG Lactic Acid Sodium Chloride Carbon Dioxide BUN 27 H Creatinine 0.5 L Glucose 138 H Calcium 7.7 L Total Bilirubin 9.6 H Direct Bilirubin GGT AST 115 H ALT 49 H Alkaline Phosphatase 138 H Total Protein 4.4 L Albumin 2.3 L Globulin 2.1 L Albumin/Globulin Ratio Urine Appearance Urine Protein Urine Occult Blood Urine Urobilinogen Urine RBC Urine WBC Ur Squamous Epith Cells Hyaline Casts Urine Mucus 03/13/21 03/13/21 03/13/21 20:00 14:03 10:00 WBC RBC Hgb Hct MCV MCH MCHC RDW Plt Count Neut % (Auto) Lymph % (Auto) Lymph # (Auto) [place] # (Auto) Absolute Neutrophils POC PT PT POC INR INR VBG Lactic Acid Sodium 129 L 128 L Chloride Carbon Dioxide 20 L 21 L 20 L BUN 30 H 32 H 34 H Creatinine Glucose 127 H 157 H 192 H Calcium 8.1 L 8.0 L 7.5 L Total Bilirubin 9.5 H Direct Bilirubin GGT AST 112 H ALT 47 H Alkaline Phosphatase 127 H Total Protein 4.5 L Albumin 2.5 L Globulin 2.0 L Albumin/Globulin Ratio Urine Appearance Urine Protein Urine Occult Blood Urine Urobilinogen Urine RBC Urine WBC Ur Squamous Epith Cells Hyaline Casts Urine Mucus 03/13/21 03/13/21 03/13/21 07:08 05:25 02:32 WBC 21.0 H RBC 2.97 L Hgb 11.9 L Hct 32.8 L MCV 110.4 H MCH 40.1 H MCHC 36.3 H RDW 15.5 H Plt Count Neut % (Auto) 83.1 H Lymph % (Auto) 6.6 L Lymph # (Auto) 1.39 L [place] # (Auto) 2.09 H Absolute Neutrophils 17.45 H POC PT 16.8 H PT POC INR 1.4 H INR VBG Lactic Acid Sodium 129 L Chloride Carbon Dioxide 19 L BUN 34 H Creatinine Glucose 166 H Calcium 7.8 L Total Bilirubin Direct Bilirubin GGT AST ALT Alkaline Phosphatase Total Protein Albumin Globulin Albumin/Globulin Ratio Urine Appearance Urine Protein Urine Occult Blood Urine Urobilinogen Urine RBC Urine WBC Ur Squamous Epith Cells Hyaline Casts Urine Mucus 03/12/21 03/12/21 03/12/21 20:10 15:00 09:48 WBC RBC Hgb Hct MCV MCH MCHC RDW Plt Count Neut % (Auto) Lymph % (Auto) Lymph # (Auto) [place] # (Auto) Absolute Neutrophils POC PT PT 22.6 H POC INR INR 1.9 H VBG Lactic Acid Sodium 125 L 124 L Chloride 92 L 90 L Carbon Dioxide 19 L 20 L BUN 33 H 32 H Creatinine Glucose Calcium 7.8 L 8.0 L Total Bilirubin Direct Bilirubin GGT AST ALT Alkaline Phosphatase Total Protein Albumin Globulin Albumin/Globulin Ratio Urine Appearance Urine Protein Urine Occult Blood Urine Urobilinogen Urine RBC Urine WBC Ur Squamous Epith Cells Hyaline Casts Urine Mucus 03/12/21 03/12/21 03/12/21 05:07 05:06 01:42 WBC 23.9 H RBC 2.84 L Hgb 11.3 L Hct 31.4 L MCV 110.6 H MCH 39.8 H MCHC RDW 15.0 H Plt Count Neut % (Auto) 85.7 H Lymph % (Auto) 4.5 L Lymph # (Auto) 1.07 L [place] # (Auto) 2.07 H Absolute Neutrophils 20.46 H POC PT PT POC INR INR VBG Lactic Acid Sodium 125 L 122 L Chloride 90 L 86 L Carbon Dioxide 20 L BUN 29 H 28 H Creatinine Glucose 106 H Calcium 8.2 L 8.5 L Total Bilirubin 13.2 H 14.3 H Direct Bilirubin 9.3 H GGT 75 H AST 155 H 158 H ALT 59 H 58 H Alkaline Phosphatase 174 H 175 H Total Protein 5.0 L 5.3 L Albumin 2.4 L 2.7 L Globulin Albumin/Globulin Ratio 0.9 L Urine Appearance Urine Protein Urine Occult Blood Urine Urobilinogen Urine RBC Urine WBC Ur Squamous Epith Cells Hyaline Casts Urine Mucus 03/12/21 03/11/21 00:10 21:33 WBC RBC Hgb Hct MCV MCH MCHC RDW Plt Count Neut % (Auto) Lymph % (Auto) Lymph # (Auto) [place] # (Auto) Absolute Neutrophils POC PT PT POC INR INR VBG Lactic Acid 3.0 H Sodium Chloride Carbon Dioxide BUN Creatinine Glucose Calcium Total Bilirubin Direct Bilirubin GGT AST ALT Alkaline Phosphatase Total Protein Albumin Globulin Albumin/Globulin Ratio Urine Appearance Cloudy A Urine Protein 30 A Urine Occult Blood >=1.0 A Urine Urobilinogen 4.0 A Urine RBC 63 H Urine WBC 8 H Ur Squamous Epith Cells 8 H Hyaline Casts 36 H Urine Mucus Many A Meds: Medications Acetaminophen (Acetaminophen 325 Mg Tablet) 650 mg PO Q6HP PRN; Protocol PRN Reason: Per Pain Protocol/Fever > 101 Albuterol/Ipratropium (Ipratropium/Albuterol 3 Ml Ampul.Neb) 3 ml NEB Q4HRT PRN PRN Reason: Wheezing Dextrose (Dextrose 50% 50 Ml Vial) 0 ml IV UD PRN PRN Reason: Hypoglycemia Diagnostic Test (Pha) (Accu-Chek 1 Each Strip) 1 each FS Q6 [facility] Last Admin: 03/14/21 05:40 Dose: 1 each Documented by: Docusate Sodium (Docusate Sodium 100 Mg Capsule) 100 mg PO BID [facility] Last Admin: 03/14/21 07:25 Dose: Not Given Documented by: Gabapentin (Gabapentin 100 Mg Capsule) 100 mg PO HS [facility] Last Admin: 03/13/21 20:59 Dose: Not Given Documented by: Glucose (Dextrose 31 Gm Oral.Susp) 15 gm PO PRN PRN PRN Reason: Hypoglycemia Sodium Chloride (Sodium Chloride 0.9%) 250 mls @ 20 mls/hr IV .[id number] [facility] Last Admin: 03/14/21 02:56 Dose: 20 mls/hr Documented by: Meropenem 1 gm/ Sodium (Chloride) 50 mls @ 100 mls/hr IV Q8 [facility]; Protocol Last Infusion: 03/14/21 06:29 Dose: Infused Documented by: Dextrose/Sodium Chloride (Dextrose 5%-Ns Iv Solution) 1,000 mls @ 70 mls/hr IV .[id number] [facility] Last Admin: 03/14/21 02:59 Dose: 70 mls/hr Documented by: Norepinephrine Bitartrate 16 (mg/ Sodium Chloride) 250 mls @ 9.375 mls/hr IV Q24H [facility]; Protocol Last Titration: 03/13/21 18:40 Dose: 3 mcg/min, 2.813 mls/hr Documented by: Insulin Human Lispro (Insulin Lispro 1 Unit/0.01 Ml Unit) 0 unit SQ Q6 [facility]; Protocol Last Admin: 03/14/21 05:41 Dose: Not Given Documented by: Lactulose (Lactulose 20 Gm/30 Ml Oral.Talia) 20 gm [place] BID [facility] Last Admin: 03/13/21 21:02 Dose: 20 gm Documented by: Lactulose (Lactulose 20 Gm/30 Ml Oral.Talia) 10 gm PO DAILYP PRN PRN Reason: Constipation Last Admin: 03/13/21 04:33 Dose: 10 gm Documented by: Midodrine (Midodrine 5 Mg Tablet) 10 mg PO TID@0800,1200,1700 [facility] Morphine Sulfate (Morphine 2 Mg/Ml Vial) 2 mg IV Q4HP PRN; Protocol PRN Reason: Per Pain Protocol Last Admin: 03/13/21 15:18 Dose: 2 mg Documented by: Ondansetron HCl (Ondansetron 4 Mg/2 Ml Vial) 4 mg IV Q4HP PRN; Protocol PRN Reason: Nausea And Vomiting Oxycodone/Acetaminophen (Oxycodone/Apap 5/325mg Tablet) 1 tab PO Q4HP PRN; Protocol PRN Reason: Per Pain Protocol Pantoprazole Sodium (Pantoprazole 40 Mg Vial) 40 mg IV BIDAC [facility] Last Admin: 03/14/21 06:50 Dose: 40 mg Documented by: Senna (Sennosides 1 Tablet) 2 tab PO HSP PRN PRN Reason: Constipation Sodium Chloride (0.9 % Sodium Chloride 10 Ml Syringe) 10 ml IV Q8 [facility] Last Admin: 03/14/21 05:45 Dose: 10 ml Documented by: Sodium Chloride (0.9 % Sodium Chloride 10 Ml Syringe) 10 ml IV Q12 [facility] Last Admin: 03/13/21 21:28 Dose: 10 ml Documented by: Sodium Chloride (0.9 % Sodium Chloride 10 Ml Syringe) 10 ml IV UD PRN PRN Reason: Flush Last Admin: 03/14/21 06:31 Dose: 10 ml Documented by: A/P Assessment and plan (1) Stage 1 acute kidney injury: Status: Acute (2) Noncompliance with medication regimen: Status: Acute (3) Coagulopathy: Status: Acute (4) SBP (spontaneous bacterial peritonitis): Status: Acute (5) Hyponatremia: Status: Acute (6) Hypokalemia: Status: Acute (7) Alcoholic cirrhosis of liver with ascites: Status: Acute (8) Hepatic encephalopathy: Status: Acute (9) Ileus: Status: Acute (10) Septic shock: Status: Acute Narrative A/P Narrative: Assessment and Plans: 1. Severe sepsis with suspected spontaneous bacterial peritonitis: Stays in inpatient PCU Serial lactic acid Blood culture X2, no growth to date Diagnostic and therapeutic paracentesis on 03/12/21 with 3.9L ascites fluid removed. Neutrophile count 67<250, suggests AGAINST SBP. Patient still meets sepsis criteria. Decide to keep broad spectrum antibiotics. SAAG 1.6 g/dL suggestive of portal HTN. D5NS@70cc/hr Levophed drip titrate to keep MAP >=60mmHg Add Midodrine when patient can tolerate PO intake Albumin transfusion cbc w/ auto diff in the morning to trend WBC Merropenem Tylenol PRN fever Zofran IV PRN nausea vomiting Since patient is noncompliant to potassium, will need to avoid Lasix or any other diuretics 2. Alcoholic cirrhosis with ascites and hepatic encephalopathy: Lactulose 20gm [place] BID titrate to achieve 3 large BMs per day, switch to PO when patient is tolerating PO intake No need to trend serum ammonia level; instead focus on clinical mental status Non selective beta dewey as well as Spironolactone when blood pressure tolerate Continue to spiritual counselor patient to quit alcohol consumption Speech therapy swallowing evaluation 3. Coagulopathy secondary to alcoholic cirrhosis: Vitamin K 10mg IV once to be given in the ED in preparation for the planned paracentesis PT INR daily 4. Hyponatremia: RESOLVED D5NS@70cc/hr Since chronicity is unknown, goal of correction is 8-10 points in the first 24 hours BMP q6hr to trend serum sodium level 5. Stage 1 acute kidney injury: RESOLVED DDx: Hepatorenal syndrome Avoid nephrotoxic agents s/p 30cc/kg NS fluid bolus in the ED, followed by NS@70cc/hr BMP q6hr to trend kidney functions 6. Ileus vs small bowel obstruction: NG tube insert with low intermittent suction NPO D5NS@70cc/hr Zofran IV PRN nausea vomiting Consult general surgery Dr. Olson, recs. appreciated GI ppx: Protonix IV DVT ppx: SCDs Code status: Full Prognosis: Poor Disposition: inpatient ICU Critical Care Time: 45min Time Spent With Patient Time: Total time spent is greater than 50% in coordination of care (as documented) at patient's floor/unit and/or counseling patient: Total time spent with greater than 50% in coordination of care (as documented) at patient's floor/unit and/or counseling patient:: Greater than 35 minutes QUALITY Stroke Symptom Onset Unknown: No VTE Deep Vein Thrombosis/Pulmonary Embolism Present on Admission: No
--- NOTE | 2021-03-14 09:53 | XRay Report ---
CLINICAL INFORMATION: NGT placement verification COMPARISON: None. FINDINGS: NG tube overlies the proximal gastric body. Sidehole near the GE junction. Stool gas pattern is normal. No free air IMPRESSION: NG tip overlies the proximal gastric body. The nurses were instructed to advance the tube 6 cm. No acute disease Interpreted and Authenticated by: Josue Sanchez 03/14/21
[2021-03-14] MEDS: LACTULOSE 20 GM/30 ML ORAL.SOL PR SCH ×2 (11:34→21:22)
[2021-03-14] MEDS: MIDODRINE 5 MG TABLET PO SCH ×2 (12:17→16:52)
[2021-03-14 13:48] LABS: Blood Urea Nitrogen 27 mg/dL (6-20); Calcium 7.6 mg/dL (8.6-10.4); Carbon Dioxide 22 mmol/L (22-30); Chloride 107 mmol/L (96-108); Glomerular Filtration Rate 106; Glucose 128 mg/dL (70-105)
--- NOTE | 2021-03-14 13:57 | General Surgery Consult Note ---
HPI Data of Consult Consult date: 03/14/21 Requesting physician: Jesus Torrez Primary Care Provider: Other Provider Consult Narrative Reason for consult: Adynamic ileus History of present illness: 60-year-old female with long history of alcoholism who presents with end-stage cirrhosis with hepatic failure, coagulopathy, sepsis, spontaneous bacterial peritonitis, hepatic encephalopathy. She has had massive ascites and had recent paracentesis of 3.9L. Patient has dilated loops of small bowel with normal appearing colon on plain films. She is having bowel movements because of lactulose. She does have dilated small bowel but this is most likely adynamic ileus and is related to her SBP. cc:: CC: Jesus Torrez MD Review of Systems ROS unobtainable: due to mental status PFSH PFSH All Active Problems Ileus (Acute) Septic shock (Acute) Stage 1 acute kidney injury (Acute) Clinical sepsis (Acute) Noncompliance with medication regimen (Acute) Coagulopathy (Acute) SBP (spontaneous bacterial peritonitis) (Acute) Hyponatremia (Acute) Hypokalemia (Acute) Alcoholic cirrhosis of liver with ascites (Acute) Hepatic encephalopathy (Acute) MEDS/ALLERGIES Home Medications and Allergies Home Medications Medication Instructions Recorded Confirmed Type furosemide 40 mg PO DAILY 03/12/21 03/12/21 History gabapentin 100 mg PO HS 03/12/21 03/12/21 History potassium chloride 20 meq PO TID 03/12/21 03/12/21 History pregabalin 150 mg PO BID 03/12/21 03/12/21 History spironolactone 100 mg PO DAILY 03/12/21 03/12/21 History Allergies Allergy/AdvReac Type Severity Reaction Status Date / Time codeine AdvReac Mild Nausea Verified 03/12/21 11:51 Penicillins AdvReac Unknown Unknown Verified 03/12/21 11:51 sulfate ion AdvReac Unknown Unknown Verified 03/12/21 11:51 Physical Examination Vital Signs Vital signs: Temp Pulse Resp BP Pulse Ox 98.7 F 103 H 17 106/68 96 03/14/21 13:01 03/14/21 06:00 03/14/21 13:01 03/14/21 13:01 03/14/21 13:01 General physical appearance General physical exam: cachectic, chronically ill and other (Mentally obtunded) Eyes Eye exam: icteric (Deeply icteric with bilateral scleral edema) ENT ENT exam: poor snf Head Head exam IM: Present atraumatic, normal inspection and normocephalic Neck Neck exam: no masses, trachea midline and no lymphadenopathy Cardiovascular Cardiovascular exam IM: Present +S1, +S2 and tachycardia Respiratory Respiratory exam: normal expansion and other (Labored respirations) Abdomen Abdomen: Present distended (Markedly distended abdomen with ballotable ascites and plus or minus tenderness. Hypoactive bowel sounds) Integumentary Integumentary: Present other (Deeply icteric) Neurologic Neurologic: Present disoriented and confused Musculoskeletal Musculoskeletal: Present other (Unable to test gait or stance) Psychiatric Psychiatric: Present other (Mentally obtunded due to encephalopathy related to probable end-stage hepatic failure) Results Labs Result diagrams: 03/14/21 03:21 03/14/21 03:20 Labs: Abnormal lab results 03/13/21 03/13/21 03/14/21 Range/Units 14:03 20:00 03:20 WBC (4.5-11.0) K/mcL RBC (4.00-5.20) M/mcL Hgb (12.0-15.0) g/dL Hct (36.0-48.0) % MCV (80.0-100.0) fL MCH (26.0-34.0) pg MCHC (31.0-36.0) g/dL RDW (11.5-14.5) % Plt Count (140-440) K/mcL Neut % (Auto) (38.0-78.0) % Lymph % (Auto) (15.0-49.0) % Lymph # (Auto) (1.50-4.80) K/mcL [place] # (Auto) (0.10-0.90) K/mcL Absolute Neutrophils (1.80-8.00) K/mcL PT (11.9-14.5) sec INR (0.9-1.1) Sodium 129 L (133-145) mmol/L Carbon Dioxide 21 L 20 L (22-30) mmol/L BUN 32 H 30 H 27 H (6-20) mg/dL Creatinine 0.5 L (0.6-1.1) mg/dL Glucose 157 H 127 H 138 H (70-105) mg/dL Calcium 8.0 L 8.1 L 7.7 L (8.6-10.4) mg/dL Total Bilirubin 9.5 H 9.6 H (0.1-1.0) mg/dL AST 112 H 115 H (<32) U/L ALT 47 H 49 H (<40) U/L Alkaline Phosphatase 127 H 138 H (39-117) U/L Total Protein 4.5 L 4.4 L (5.9-8.4) gm/dL Albumin 2.5 L 2.3 L (3.2-5.2) gm/dL Globulin 2.0 L 2.1 L (2.2-3.7) gm/dL 03/14/21 03/14/21 Range/Units 03:20 03:21 WBC 15.7 H (4.5-11.0) K/mcL RBC 2.53 L (4.00-5.20) M/mcL Hgb 10.3 L (12.0-15.0) g/dL Hct 28.3 L (36.0-48.0) % MCV 111.9 H (80.0-100.0) fL MCH 40.7 H (26.0-34.0) pg MCHC 36.4 H (31.0-36.0) g/dL RDW 15.6 H (11.5-14.5) % Plt Count 104 L (140-440) K/mcL Neut % (Auto) 83.7 H (38.0-78.0) % Lymph % (Auto) 7.7 L (15.0-49.0) % Lymph # (Auto) 1.21 L (1.50-4.80) K/mcL [place] # (Auto) 1.31 H (0.10-0.90) K/mcL Absolute Neutrophils 13.14 H (1.80-8.00) K/mcL PT 24.4 H (11.9-14.5) sec INR 2.1 H (0.9-1.1) Sodium (133-145) mmol/L Carbon Dioxide (22-30) mmol/L BUN (6-20) mg/dL Creatinine (0.6-1.1) mg/dL Glucose (70-105) mg/dL Calcium (8.6-10.4) mg/dL Total Bilirubin (0.1-1.0) mg/dL AST (<32) U/L ALT (<40) U/L Alkaline Phosphatase (39-117) U/L Total Protein (5.9-8.4) gm/dL Albumin (3.2-5.2) gm/dL Globulin (2.2-3.7) gm/dL Diabetes panel 03/13/21 03/13/21 03/14/21 Range/Units 14:03 20:00 03:20 Sodium 129 L 133 136 (133-145) mmol/L Potassium 3.3 3.6 3.7 (3.3-5.1) mmol/L Chloride 98 103 106 (96-108) mmol/L Carbon Dioxide 21 L 20 L 22 (22-30) mmol/L BUN 32 H 30 H 27 H (6-20) mg/dL Creatinine 0.6 0.6 0.5 L (0.6-1.1) mg/dL Glucose 157 H 127 H 138 H (70-105) mg/dL Calcium 8.0 L 8.1 L 7.7 L (8.6-10.4) mg/dL AST 112 H 115 H (<32) U/L ALT 47 H 49 H (<40) U/L Alkaline Phosphatase 127 H 138 H (39-117) U/L Total Protein 4.5 L 4.4 L (5.9-8.4) gm/dL Albumin 2.5 L 2.3 L (3.2-5.2) gm/dL Calcium panel 03/13/21 03/13/21 03/14/21 Range/Units 14:03 20:00 03:20 Calcium 8.0 L 8.1 L 7.7 L (8.6-10.4) mg/dL Albumin 2.5 L 2.3 L (3.2-5.2) gm/dL Pituitary panel 03/13/21 03/13/21 03/14/21 Range/Units 14:03 20:00 03:20 Sodium 129 L 133 136 (133-145) mmol/L Potassium 3.3 3.6 3.7 (3.3-5.1) mmol/L Chloride 98 103 106 (96-108) mmol/L Carbon Dioxide 21 L 20 L 22 (22-30) mmol/L BUN 32 H 30 H 27 H (6-20) mg/dL Creatinine 0.6 0.6 0.5 L (0.6-1.1) mg/dL Glucose 157 H 127 H 138 H (70-105) mg/dL Calcium 8.0 L 8.1 L 7.7 L (8.6-10.4) mg/dL Adrenal panel 03/13/21 03/13/21 03/14/21 Range/Units 14:03 20:00 03:20 Sodium 129 L 133 136 (133-145) mmol/L Potassium 3.3 3.6 3.7 (3.3-5.1) mmol/L Chloride 98 103 106 (96-108) mmol/L Carbon Dioxide 21 L 20 L 22 (22-30) mmol/L BUN 32 H 30 H 27 H (6-20) mg/dL Creatinine 0.6 0.6 0.5 L (0.6-1.1) mg/dL Glucose 157 H 127 H 138 H (70-105) mg/dL Calcium 8.0 L 8.1 L 7.7 L (8.6-10.4) mg/dL Total Bilirubin 9.5 H 9.6 H (0.1-1.0) mg/dL AST 112 H 115 H (<32) U/L ALT 47 H 49 H (<40) U/L Alkaline Phosphatase 127 H 138 H (39-117) U/L Total Protein 4.5 L 4.4 L (5.9-8.4) gm/dL Albumin 2.5 L 2.3 L (3.2-5.2) gm/dL All other labs normal. A/P Assessment and plan (1) Septic shock: Status: Acute (2) SBP (spontaneous bacterial peritonitis): Status: Acute (3) Alcoholic cirrhosis of liver with ascites: Status: Acute (4) Hepatic encephalopathy: Status: Acute (5) Coagulopathy: Status: Acute (6) Stage 1 acute kidney injury: Status: Acute Narrative A/P Narrative: The patient's abdominal findings are due to her bacterial peritonitis. She can be treated expectantly and will benefit from addition of Reglan for gastric and small bowel motility augmentation. No further int ervention is needed at this time. She is not a candidate for any type of major intervention. Time Spent With Patient Time: Total time spent is greater than 50% in coordination of care (as documented) at patient's floor/unit and/or counseling patient:
[2021-03-14] MEDS: NOREPINEPHRINE BITARTRATE 16 MG in 0.9 % SODIUM CHLORIDE 234 ML IV SCH (17:32)
[2021-03-14] MEDS: METOCLOPRAMIDE 10 MG/2 ML VIAL IV SCH ×2 (17:43→23:40)
[2021-03-14 17:45] LABS: Blood Urea Nitrogen 25 mg/dL (6-20); Calcium 7.7 mg/dL (8.6-10.4); Carbon Dioxide 21 mmol/L (22-30); Chloride 108 mmol/L (96-108); Glomerular Filtration Rate 114; Glucose 130 mg/dL (70-105)
[2021-03-14] MEDS: morphine 2 MG/ML VIAL IV PRN ×2 (18:42→22:40)
[2021-03-14] MEDS: GABAPENTIN 100 MG CAPSULE PO SCH (21:21)
[2021-03-14] MEDS: CHLORHEXIDINE GLUCONATE 1 ML ORAL.SOL SWABMOUTH SCH (21:22)
--- NOTE | 2021-03-15 03:27 | XRay Report ---
CLINICAL INFORMATION: respiratory distress COMPARISON: 03/13/2021 FINDINGS: NG tube has been placed and extends, at least, to the gastric fundus off the film edge. Right IJ central line remains in stable satisfactory position with the tip overlying the azygos SVC junction. Heart size, mediastinum and pulmonary vessels are normal. Moderate infiltrate in the right mid and lower lung has worsened since yesterday. Small right pleural effusion noted IMPRESSION: Moderate right mid/lower lung infiltrate worsening. Interpreted and Authenticated by: Josue Sanchez 03/15/21
[2021-03-15] MEDS ORDERED: 0.9 % SODIUM CHLORIDE 1,000 ML IV ONE (03:38)
[2021-03-15] MEDS: 0.9 % SODIUM CHLORIDE 250 ML IV SCH ×2 (04:27→17:27)
[2021-03-15] MEDS: 0.9 % SODIUM CHLORIDE 10 ML SYRINGE IV PRN ×2 (04:55→06:10)
[2021-03-15] MEDS: 0.9 % SODIUM CHLORIDE 10 ML SYRINGE IV SCH ×6 (04:55→22:37)
[2021-03-15] MEDS: METOCLOPRAMIDE 10 MG/2 ML VIAL IV SCH ×3 (05:29→17:31)
[2021-03-15] MEDS: INSULIN LISPRO 1 UNIT/0.01 ML UNIT SQ SCH ×3 (05:30→17:28)
[2021-03-15] MEDS: MEROPENEM 1 GM in 0.9 % SODIUM CHLORIDE 50 ML IV SCH ×3 (05:31→22:36)
[2021-03-15 06:05] LABS: ALT/SGPT 49 U/L (<40); AST/SGOT 125 U/L (<32); Albumin 1.8 gm/dL (3.2-5.2); Albumin/Globulin Ratio 0.9 (1.0-2.3); Alkaline Phosphatase 151 U/L (39-117); Bilirubin,Total 8.9 mg/dL (0.1-1.0); Blood Urea Nitrogen 28 mg/dL (6-20); Calcium 7.5 mg/dL (8.6-10.4); Carbon Dioxide 14 mmol/L (22-30); Chloride 112 mmol/L (96-108); Globulin 1.9 gm/dL (2.2-3.7); Glomerular Filtration Rate 61; Glucose 119 mg/dL (70-105)
[2021-03-15 06:12] LABS: INR 2.3 (0.9-1.1); Prothrombin Time 26.2 sec (11.9-14.5)
[2021-03-15 06:41] LABS: Basophils # (Auto) 0.13 K/mcL (0.00-0.20); Basophils % (Auto) 0.6 % (0.0-2.0); Eosinophils # (Auto) 0 K/mcL (0.00-0.70); Eosinophils % (Auto) 0 % (0.0-7.0); Hematocrit 32.2 % (36.0-48.0); Hemoglobin 10.9 g/dL (12.0-15.0); Lymphocytes # (Auto) 0.72 K/mcL (1.50-4.80); Lymphocytes % (Auto) 3.4 % (15.0-49.0); Mean Cell Volume 117.9 fL (80.0-100.0); Mean Corpuscular HGB Conc 33.9 g/dL (31.0-36.0); Mean Platelet Volume 10.1 fL (7.4-10.4); Monocytes # (Auto) 1.09 K/mcL (0.10-0.90); Monocytes % (Auto) 5.2 % (1.0-12.0); Neutrophils % (Auto) 90.8 % (38.0-78.0); Platelet Count 87 K/mcL (140-440); RBC 2.73 M/mcL (4.00-5.20); Red Cell Distribution Width 16.1 % (11.5-14.5); WBC 20.9 K/mcL (4.5-11.0)
[2021-03-15] MEDS: PANTOPRAZOLE 40 MG VIAL IV SCH ×2 (07:04→17:14)
[2021-03-15] MEDS: DOCUSATE SODIUM 100 MG CAPSULE PO SCH (07:21)
[2021-03-15] MEDS: CHLORHEXIDINE GLUCONATE 1 ML ORAL.SOL SWABMOUTH SCH (07:29)
[2021-03-15] MEDS: LACTULOSE 20 GM/30 ML ORAL.SOL PR SCH (07:29)
[2021-03-15] MEDS: MIDODRINE 5 MG TABLET PO SCH ×3 (07:30→17:14)
--- NOTE | 2021-03-15 08:28 | Internal Med Progress Note ---
SUBJECTIVE Subjective Patient information: Note initiated : 03/15/21 at 8:23 am Service Date, if different from initiated Date: [] Patient: Gina Simms 60 y/o F admitted on 03/11/21 for Hepatic E ncephalopathy and SBP. Chief Complaint: [SBP, hepatic encephalopathy] 03/12/21: No bowel movement overnight. Afebrile. Cultures no growth to date. Serum sodium level 125 this morning. Otherwise there was no other major overnight events. Patient is non-verbal. 03/13/21: Levophed drip was started, and as a result patient was being transferred to ICU. Paracentesis was performed and 3.9L ascites fluid removed. Levophed drip was started. Right IVJ central line inserted this morning. No bowel movement overnight. Blood cultures no growth to date. Patient is nonverbal. 03/14/21: Right IVJ central line was inserted on 03/13/21. Levophed drip currently running at 3mcg/min. No bowel movement overnight. KUB suggestive of ileus and cannot rule out bowel obstruction. Blood and ascites cultures no growth to date. Patient is nonverbal. 03/15/21: Levophed drip was off yesterday around 1400. Had multiple bowel movements since yesterday. Been on BiPAP since around midnight. at bedside agreed to switch to DNI DNR. Patient is nonverbal. Constitutional Vitals: Vital Signs Temp Pulse Resp BP Pulse Ox 36.7 C 107 H 15 83/68 98 03/15/21 08:01 03/15/21 07:15 03/15/21 08:01 03/15/21 08:01 03/15/21 08:01 Period Temp Pulse Resp BP Sys/Bailey Pulse Ox Last 24 Hr 35.5 C-37.8 C 107-125 12-34 73-122/55-99 90-98 Intake and Output 03/14/21 03/15/21 03/15/21 21:59 05:59 13:59 Intake Total 1384 1050 50 Output Total 197 163 3 Balance 1187 887 47 Weight 55.792 kg Intake & Output: Intake & Output 03/14/21 03/15/21 03/15/21 21:59 05:59 13:59 Intake Total 1384 1050 50 Output Total 197 163 3 Balance 1187 887 47 Weight 55.792 kg Intake: IV 1354 1050 50 Sodium Chloride 0.9% 1,000 ml @ 1000 Wide Open IV BOLUS ONE Rx#: [id number] Sodium Chloride 0.9% 250 ml @ 250 20 mls/hr IV .[id number] [facility] Rx#: [id number] Dextrose 5%-Ns IV Solution 1, 1000 000 ml @ 70 mls/hr IV .[id number] [facility] Rx#:[id number] Merrem 1 gm In Sodium Chloride 50 50 50 0.9% 50 ml @ 100 mls/hr IV Q8 [facility] Rx#:[id number] Levophed 16 mg In Sodium 54 Chloride 0.9% 234 ml @ 10 MCG/ MIN 9.375 mls/hr IV Q24H [facility] Rx #:[id number] Tube Feeding 0 0 NG Tube Flush 30 Left Nare 30 Output: Gastric Drainage 150 Left Nare 150 Urine Catheter Amount 197 13 3 Other: Urine Appearance Clear Clear Uretheral (Vivar) Clear Clear Urine Color Dark Edna Dark Edna [place] Sandoval Uretheral (Vivar) Dark Edna Dark Edna [place] Stool Size Moderate Small Stool Color Brown Brown Stool Consistency Loose Loose # of times incontinent of 1 Bowels General appearance: cooperative and no acute distress Head Head exam: Present atraumatic and normocephalic Eye Eye exam: Present EOMI and PERRL ENT ENT exam: Present mucous membranes moist, normal exam and normal external ear exam Additional comments: BiPAP in place Neck Neck exam: Present normal inspection; Absent lymphadenopathy, tenderness and thyromegaly Respiratory Respiratory exam: Absent accessory muscle use, respiratory distress and wheezes Cardiovascular Cardiovascular exam: Present normal rate and rhythm; Absent JVD GI/Abdominal GI/Abdominal exam: Present normal bowel sounds, distended, firm and organomegaly; Absent tenderness Additional comments: positive fluid wave Caput medusae Extremities Exam Extremities exam: Present full ROM, normal capillary refill and normal inspection; Absent tenderness Neurological Exam Neurological exam: Present alert, CN II-XII intact and oriented X3; Absent motor sensory deficit Psychiatric Psychiatric exam: Present normal affect and normal mood; Absent anxious and depressed Skin Skin exam: Present dry and intact Additional comments: jaundice OBJ DATA Labs CBC & Chem 7: 03/15/21 04:57 03/15/21 04:56 Labs: Abnormal Lab Results 0703/15/21 03/15/21 04:57 04:56 04:56 WBC 20.9 H RBC 2.73 L Hgb 10.9 L Hct 32.2 L MCV 117.9 H MCH 39.9 H MCHC RDW 16.1 H Plt Count 87 L Neut % (Auto) 90.8 H Lymph % (Auto) 3.4 L Lymph # (Auto) 0.72 L [place] # (Auto) 1.09 H Absolute Neutrophils 18.93 H POC PT PT 26.2 H POC INR INR 2.3 H Sodium Chloride 112 H Carbon Dioxide 14 L BUN 28 H Creatinine Glucose 119 H Calcium 7.5 L Total Bilirubin 8.9 H AST 125 H ALT 49 H Alkaline Phosphatase 151 H Total Protein 3.7 L Albumin 1.8 L Globulin 1.9 L Albumin/Globulin Ratio 0.9 L 03/14/21 03/14/21 03/14/21 14:02 07:47 03:21 WBC 15.7 H RBC 2.53 L Hgb 10.3 L Hct 28.3 L MCV 111.9 H MCH 40.7 H MCHC 36.4 H RDW 15.6 H Plt Count 104 L Neut % (Auto) 83.7 H Lymph % (Auto) 7.7 L Lymph # (Auto) 1.21 L [place] # (Auto) 1.31 H Absolute Neutrophils 13.14 H POC PT PT POC INR INR Sodium Chloride Carbon Dioxide 21 L BUN 25 H 27 H Creatinine 0.4 L 0.5 L Glucose 130 H 128 H Calcium 7.7 L 7.6 L Total Bilirubin AST ALT Alkaline Phosphatase Total Protein Albumin Globulin Albumin/Globulin Ratio 03/14/21 03/14/21 03/13/21 03:20 03:20 20:00 WBC RBC Hgb Hct MCV MCH MCHC RDW Plt Count Neut % (Auto) Lymph % (Auto) Lymph # (Auto) [place] # (Auto) Absolute Neutrophils POC PT PT 24.4 H POC INR INR 2.1 H Sodium Chloride Carbon Dioxide 20 L BUN 27 H 30 H Creatinine 0.5 L Glucose 138 H 127 H Calcium 7.7 L 8.1 L Total Bilirubin 9.6 H 9.5 H AST 115 H 112 H ALT 49 H 47 H Alkaline Phosphatase 138 H 127 H Total Protein 4.4 L 4.5 L Albumin 2.3 L 2.5 L Globulin 2.1 L 2.0 L Albumin/Globulin Ratio 03/13/21 03/13/21 03/13/21 14:03 10:00 07:08 WBC RBC Hgb Hct MCV MCH MCHC RDW Plt Count Neut % (Auto) Lymph % (Auto) Lymph # (Auto) [place] # (Auto) Absolute Neutrophils POC PT 16.8 H PT POC INR 1.4 H INR Sodium 129 L 128 L Chloride Carbon Dioxide 21 L 20 L BUN 32 H 34 H Creatinine Glucose 157 H 192 H Calcium 8.0 L 7.5 L Total Bilirubin AST ALT Alkaline Phosphatase Total Protein Albumin Globulin Albumin/Globulin Ratio 03/13/21 03/13/21 03/12/21 05:25 02:32 20:10 WBC 21.0 H RBC 2.97 L Hgb 11.9 L Hct 32.8 L MCV 110.4 H MCH 40.1 H MCHC 36.3 H RDW 15.5 H Plt Count Neut % (Auto) 83.1 H Lymph % (Auto) 6.6 L Lymph # (Auto) 1.39 L [place] # (Auto) 2.09 H Absolute Neutrophils 17.45 H POC PT PT POC INR INR Sodium 129 L 125 L Chloride 92 L Carbon Dioxide 19 L 19 L BUN 34 H 33 H Creatinine Glucose 166 H Calcium 7.8 L 7.8 L Total Bilirubin AST ALT Alkaline Phosphatase Total Protein Albumin Globulin Albumin/Globulin Ratio 03/12/21 03/12/21 15:00 09:48 WBC RBC Hgb Hct MCV MCH MCHC RDW Plt Count Neut % (Auto) Lymph % (Auto) Lymph # (Auto) [place] # (Auto) Absolute Neutrophils POC PT PT 22.6 H POC INR INR 1.9 H Sodium 124 L Chloride 90 L Carbon Dioxide 20 L BUN 32 H Creatinine Glucose Calcium 8.0 L Total Bilirubin AST ALT Alkaline Phosphatase Total Protein Albumin Globulin Albumin/Globulin Ratio Meds: Medications Acetaminophen (Acetaminophen 325 Mg Tablet) 650 mg PO Q6HP PRN; Protocol PRN Reason: Per Pain Protocol/Fever > 101 Albuterol/Ipratropium (Ipratropium/Albuterol 3 Ml Ampul.Neb) 3 ml NEB Q4HRT PRN PRN Reason: Wheezing Chlorhexidine Gluconate (Chlorhexidine Gluconate 1 Ml Oral.Talia) 15 ml SWABMOUTH BID LAYLA Last Admin: 03/15/21 07:29 Dose: 15 ml Documented by: Dextrose (Dextrose 50% 50 Ml Vial) 0 ml IV UD PRN PRN Reason: Hypoglycemia Diagnostic Test (Pha) (Accu-Chek 1 Each Strip) 1 each FS Q6 [facility] Last Admin: 03/15/21 05:25 Dose: 1 each Documented by: Docusate Sodium (Docusate Sodium 100 Mg Capsule) 100 mg PO BID LAYLA Last Admin: 03/15/21 07:21 Dose: Not Given Documented by: Gabapentin (Gabapentin 100 Mg Capsule) 100 mg PO HS [facility] Last Admin: 03/14/21 21:21 Dose: 100 mg Documented by: Glucose (Dextrose 31 Gm Oral.Susp) 15 gm PO PRN PRN PRN Reason: Hypoglycemia Sodium Chloride (Sodium Chloride 0.9%) 250 mls @ 20 mls/hr IV .[id number] [facility] Last Admin: 03/15/21 04:27 Dose: Not Given Documented by: Meropenem 1 gm/ Sodium (Chloride) 50 mls @ 100 mls/hr IV Q8 [facility]; Protocol Last Infusion: 03/15/21 07:08 Dose: Infused Documented by: Dextrose/Sodium Chloride (Dextrose 5%-Ns Iv Solution) 1,000 mls @ 70 mls/hr IV .[id number] [facility] Last Admin: 03/14/21 17:29 Dose: 70 mls/hr Documented by: Norepinephrine Bitartrate 16 (mg/ Sodium Chloride) 250 mls @ 9.375 mls/hr IV Q24H [facility]; Protocol Last Admin: 03/14/21 17:32 Dose: Not Given Documented by: Insulin Human Lispro (Insulin Lispro 1 Unit/0.01 Ml Unit) 0 unit SQ Q6 [facility]; Protocol Last Admin: 03/15/21 05:30 Dose: Not Given Documented by: Lactulose (Lactulose 20 Gm/30 Ml Oral.Talia) 20 gm NC BID LAYLA Last Admin: 03/15/21 07:29 Dose: 20 gm Documented by: Lactulose (Lactulose 20 Gm/30 Ml Oral.Talia) 10 gm PO DAILYP PRN PRN Reason: Constipation Last Admin: 03/13/21 04:33 Dose: 10 gm Documented by: Metoclopramide HCl (Metoclopramide 10 Mg/2 Ml Vial) 5 mg IV Q6 [facility] Last Admin: 03/15/21 05:29 Dose: 5 mg Documented by: Midodrine (Midodrine 5 Mg Tablet) 10 mg PO TID@0800,1200,1700 [facility] Last Admin: 03/15/21 07:30 Dose: 10 mg Documented by: Morphine Sulfate (Morphine 2 Mg/Ml Vial) 2 mg IV Q4HP PRN; Protocol PRN Reason: Per Pain Protocol Last Admin: 03/14/21 22:40 Dose: 2 mg Documented by: Ondansetron HCl (Ondansetron 4 Mg/2 Ml Vial) 4 mg IV Q4HP PRN; Protocol PRN Reason: Nausea And Vomiting Oxycodone/Acetaminophen (Oxycodone/Apap 5/325mg Tablet) 1 tab PO Q4HP PRN; Protocol PRN Reason: Per Pain Protocol Pantoprazole Sodium (Pantoprazole 40 Mg Vial) 40 mg IV BIDAC [facility] Last Admin: 03/15/21 07:04 Dose: 40 mg Documented by: Senna (Sennosides 1 Tablet) 2 tab PO HSP PRN PRN Reason: Constipation Sodium Chloride (0.9 % Sodium Chloride 10 Ml Syringe) 10 ml IV Q8 [facility] Last Admin: 03/15/21 04:55 Dose: 10 ml Documented by: Sodium Chloride (0.9 % Sodium Chloride 10 Ml Syringe) 10 ml IV Q12 [facility] Last Admin: 03/14/21 21:28 Dose: 10 ml Documented by: Sodium Chloride (0.9 % Sodium Chloride 10 Ml Syringe) 10 ml IV UD PRN PRN Reason: Flush Last Admin: 03/15/21 06:10 Dose: 10 ml Documented by: A/P Assessment and plan (1) Stage 1 acute kidney injury: Status: Acute (2) Noncompliance with medication regimen: Status: Acute (3) Coagulopathy: Status: Acute (4) SBP (spontaneous bacterial peritonitis): Status: Acute (5) Hyponatremia: Status: Acute (6) Hypokalemia: Status: Acute (7) Alcoholic cirrhosis of liver with ascites: Status: Acute (8) Hepatic encephalopathy: Status: Acute (9) Ileus: Status: Acute (10) Septic shock: Status: Acute (11) Aspiration pneumonia: Status: Acute Narrative A/P Narrative: Assessment and Plans: 1. Severe sepsis with suspected spontaneous bacterial peritonitis: Stays in inpatient PCU Serial lactic acid Blood culture X2, no growth to date Diagnostic and therapeutic paracentesis on 03/12/21 with 3.9L ascites fluid removed. Neutrophile count 67<250, suggests AGAINST SBP. Patient still meets sepsis criteria. Decide to keep broad spectrum antibiotics. SAAG 1.6 g/dL suggestive of portal HTN. D5NS@70cc/hr Midodrine 10mg PO TID when patient can tolerate PO intake Albumin transfusion cbc w/ auto diff in the morning to trend WBC Merropenem Tylenol PRN fever Zofran IV PRN nausea vomiting Since patient is noncompliant to potassium, will need to avoid Lasix or any other diuretics 2. Alcoholic cirrhosis with ascites and hepatic encephalopathy: Lactulose 20gm NC BID titrate to achieve 3 large BMs per day, switch to PO when patient is tolerating PO intake No need to trend serum ammonia level; instead focus on clinical mental status Non selective beta dewey as well as Spironolactone when blood pressure tolerate Continue to outreach counselor patient to quit alcohol consumption Speech therapy swallowing evaluation 3. Coagulopathy secondary to alcoholic cirrhosis: Vitamin K 10mg IV once to be given in the ED in preparation for the planned paracentesis PT INR daily 4. Hyponatremia: RESOLVED D5NS@70cc/hr Since chronicity is unknown, goal of correction is 8-10 points in the first 24 hours BMP q6hr to trend serum sodium level 5. Stage 1 acute kidney injury: RESOLVED DDx: Hepatorenal syndrome Avoid nephrotoxic agents s/p 30cc/kg NS fluid bolus in the ED, followed by NS@70cc/hr BMP q6hr to trend kidney functions 6. Ileus vs small bowel obstruction: Resolved Had multiple bowel movements OK to d/c NG tube 7. Aspiration pneumonia: BiPAP FiO2 45%, 12/8mmHg Merrem Tylenol PRN fever cbc w/ auto diff in the morning to trend WBC GI ppx: Protonix IV DVT ppx: SCDs Code status: DNI DNR Prognosis: Poor Disposition: inpatient ICU Critical Care Time: 45min Time Spent With Patient Time: Total time spent is greater than 50% in coordination of care (as documented) at patient's floor/unit and/or counseling patient: Total time spent with greater than 50% in coordination of care (as documented) at patient's floor/unit and/or counseling patient:: Greater than 35 minutes QUALITY Stroke Symptom Onset Unknown: No VTE Deep Vein Thrombosis/Pulmonary Embolism Present on Admission: No
[2021-03-15] MEDS: DEXTROSE 5%-NS 1,000 ML IV SCH ×3 (09:24→19:12)
[2021-03-15] MEDS ORDERED: NOREPINEPHRINE BITARTRATE 16 MG in 0.9 % SODIUM CHLORIDE 234 ML IV PRN ×3 (13:43→21:58)
[2021-03-15] MEDS: NOREPINEPHRINE BITARTRATE 16 MG in 0.9 % SODIUM CHLORIDE 234 ML IV SCH (14:39)
--- NOTE | 2021-03-15 14:49 | Non-GYN Cytology Report ---
Non Electric Tool [employer] Cytology NG Diagnosis PERITONEAL FLUID, PARACENTESIS: --- NO ATYPICAL OR MALIGNANT CELLS IDENTIFIED. --- MIXED INFLAMMATORY CELLS. NG Micro Description Cytologic preparations of one ThinPrep slide, one Pap stained cytospin slide, one DifQuik stained cytospin slide, one Mcbride Giemsa stained cytospin slide and one cell block preparation are reviewed. Preparations show mixed inflammatory cells with scattered mesothelial cells. No atypical or malignant cells identified. NG Gross Description Received 1000 mL brown fluid. Electronically Signed Debbie De Leon MD, FCAP Electronically Signed 03/15/2021 14:47
[2021-03-15] MEDS ORDERED: DEXTROSE 50% 50 ML VIAL IV PRN ×2 (17:38→21:58)
[2021-03-15] MEDS ORDERED: LACTULOSE 20 GM/30 ML ORAL.SOL PO PRN ×2 (17:38→21:58)
[2021-03-15] MEDS ORDERED: ONDANSETRON 4 MG/2 ML VIAL IV PRN ×2 (17:38→21:58)
[2021-03-15] MEDS ORDERED: 0.9 % SODIUM CHLORIDE 10 ML SYRINGE IV PRN ×2 (17:38→21:58)
[2021-03-15] MEDS ORDERED: DEXTROSE 31 GM ORAL.SUSP PO PRN ×2 (17:38→21:58)
[2021-03-15] MEDS ORDERED: 0.9 % SODIUM CHLORIDE 250 ML IV SCH (17:38)
[2021-03-15] MEDS ORDERED: SENNOSIDES 1 TABLET PO PRN ×2 (17:38→21:58)
[2021-03-15] MEDS ORDERED: morphine 2 MG/ML VIAL IV PRN (17:38)
[2021-03-15] MEDS ORDERED: ACETAMINOPHEN 325 MG TABLET PO PRN (17:38)
[2021-03-15] MEDS ORDERED: oxyCODONE/APAP 5/325MG TABLET PO PRN ×2 (17:38→21:58)
[2021-03-15] MEDS ORDERED: IPRATROPIUM/ALBUTEROL 3 ML AMPUL.NEB NEB PRN ×2 (17:38→21:58)
[2021-03-15] MEDS ORDERED: INSULIN LISPRO 1 UNIT/0.01 ML UNIT SQ SCH (18:00)
[2021-03-15] MEDS ORDERED: METOCLOPRAMIDE 10 MG/2 ML VIAL IV SCH (18:00)
[2021-03-15] MEDS ORDERED: NOREPINEPHRINE BITARTRATE 4 MG/4 ML VIAL IV ONE (18:08)
--- NOTE | 2021-03-15 20:51 | Internal Med Progress Note ---
SUBJECTIVE Subjective Patient information: Note initiated : 03/15/21 at 8:46 pm Service Date, if different from initiated Date: [] Patient: Gina Simms 60 y/o F admitted on 03/11/21 for Hepatic E ncephalopathy and SBP. Chief Complaint: [] Interval history: 03/12/21: No bowel movement overnight. Afebrile. Cultures no growth to date. Serum sodium level 125 this morning. Otherwise there was no other major overnight events. Patient is non-verbal. 03/13/21: Levophed drip was started, and as a result patient was being transferred to ICU. Paracentesis was performed and 3.9L ascites fluid removed. Levophed drip was started. Right IVJ central line inserted this morning. No bowel movement overnight. Blood cultures no growth to date. Patient is non verbal. 03/14/21: Right IVJ central line was inserted on 03/13/21. Levophed drip currently running at 3mcg/min. No bowel movement overnight. KUB suggestive of ileus and cannot rule out bowel obstruction. Blood and ascites cultures no growth to date. Patient is nonverbal. 03/15/21: Levophed drip was off yesterday around 1400. Had multiple bowel movements since yesterday. Been on BiPAP since around midnight. at bedside agreed to switch to DNI DNR. Patient is nonverbal. 03/15-patient currently oliguric. Systolics around 80s. Started on Levophed. Continue vasopressors to maintain MAP at goal and attempt to reverse likely hepatorenal syndrome. Nephrology consult in a.m. Constitutional Vitals: Vital Signs Temp Pulse Resp BP Pulse Ox 98.2 F 107 H 19 90/68 92 03/15/21 20:30 03/15/21 19:05 03/15/21 20:30 03/15/21 20:30 03/15/21 20:01 Period Temp Pulse Resp BP Sys/Bailey Pulse Ox Last 24 Hr 97.7 F-100.0 F 105-125 12-29 72-122/51-99 88-98 Intake and Output 03/15/21 03/15/21 03/15/21 05:59 13:59 21:59 Intake Total 1050 1110 50 Output Total 163 11 26 Balance 887 1099 24 Intake & Output: Intake & Output 07/27/21 07/27/21 07/27/21 05:59 13:59 21:59 Intake Total 1050 1110 50 Output Total 163 11 26 Balance 887 1099 24 Intake: IV 1050 1050 50 Sodium Chloride 0.9% 1,000 ml @ 1000 Wide Open IV BOLUS ONE Rx#: [id number] Dextrose 5%-Ns IV Solution 1, 1000 000 ml @ 70 mls/hr IV .[id number] [facility] Rx#:[id number] Merrem 1 gm In Sodium Chloride 50 50 50 0.9% 50 ml @ 100 mls/hr IV Q8 [facility] Rx#:[id number] Tube Feeding 0 0 0 NG Tube Flush 60 Left Nare 60 Output: Gastric Drainage 150 Left Nare 150 Urine Catheter Amount 13 11 26 Other: Urine Appearance Clear Uretheral (Vivar) Clear Urine Color Dark Edna Dark Edna Dark Edna [place] Uretheral (Vivar) Dark Edna [place] Stool Size Small Small Stool Color Brown Brown Stool Consistency Loose Soft Liquid Loose # of times incontinent of 1 Bowels OBJ DATA Labs CBC & Chem 7: 03/15/21 04:57 03/15/21 04:56 Labs: Abnormal Lab Results 03/15/21 03/15/21 03/15/21 04:57 04:56 04:56 WBC 20.9 H RBC 2.73 L Hgb 10.9 L Hct 32.2 L MCV 117.9 H MCH 39.9 H MCHC RDW 16.1 H Plt Count 87 L Neut % (Auto) 90.8 H Lymph % (Auto) 3.4 L Lymph # (Auto) 0.72 L [place] # (Auto) 1.09 H Absolute Neutrophils 18.93 H POC PT PT 26.2 H POC INR INR 2.3 H Sodium Chloride 112 H Carbon Dioxide 14 L BUN 28 H Creatinine Glucose 119 H Calcium 7.5 L Total Bilirubin 8.9 H AST 125 H ALT 49 H Alkaline Phosphatase 151 H Total Protein 3.7 L Albumin 1.8 L Globulin 1.9 L Albumin/Globulin Ratio 0.9 L 03/14/21 03/14/21 03/14/21 14:02 07:47 03:21 WBC 15.7 H RBC 2.53 L Hgb 10.3 L Hct 28.3 L MCV 111.9 H MCH 40.7 H MCHC 36.4 H RDW 15.6 H Plt Count 104 L Neut % (Auto) 83.7 H Lymph % (Auto) 7.7 L Lymph # (Auto) 1.21 L [place] # (Auto) 1.31 H Absolute Neutrophils 13.14 H POC PT PT POC INR INR Sodium Chloride Carbon Dioxide 21 L BUN 25 H 27 H Creatinine 0.4 L 0.5 L Glucose 130 H 128 H Calcium 7.7 L 7.6 L Total Bilirubin AST ALT Alkaline Phosphatase Total Protein Albumin Globulin Albumin/Globulin Ratio 03/14/21 03/14/21 03/13/21 03:20 03:20 20:00 WBC RBC Hgb Hct MCV MCH MCHC RDW Plt Count Neut % (Auto) Lymph % (Auto) Lymph # (Auto) [place] # (Auto) Absolute Neutrophils POC PT PT 24.4 H POC INR INR 2.1 H Sodium Chloride Carbon Dioxide 20 L BUN 27 H 30 H Creatinine 0.5 L Glucose 138 H 127 H Calcium 7.7 L 8.1 L Total Bilirubin 9.6 H 9.5 H AST 115 H 112 H ALT 49 H 47 H Alkaline Phosphatase 138 H 127 H Total Protein 4.4 L 4.5 L Albumin 2.3 L 2.5 L Globulin 2.1 L 2.0 L Albumin/Globulin Ratio 03/13/21 03/13/21 03/13/21 14:03 10:00 07:08 WBC RBC Hgb Hct MCV MCH MCHC RDW Plt Count Neut % (Auto) Lymph % (Auto) Lymph # (Auto) [place] # (Auto) Absolute Neutrophils POC PT 16.8 H PT POC INR 1.4 H INR Sodium 129 L 128 L Chloride Carbon Dioxide 21 L 20 L BUN 32 H 34 H Creatinine Glucose 157 H 192 H Calcium 8.0 L 7.5 L Total Bilirubin AST ALT Alkaline Phosphatase Total Protein Albumin Globulin Albumin/Globulin Ratio 03/13/21 03/13/21 03/12/21 05:25 02:32 20:10 WBC 21.0 H RBC 2.97 L Hgb 11.9 L Hct 32.8 L MCV 110.4 H MCH 40.1 H MCHC 36.3 H RDW 15.5 H Plt Count Neut % (Auto) 83.1 H Lymph % (Auto) 6.6 L Lymph # (Auto) 1.39 L [place] # (Auto) 2.09 H Absolute Neutrophils 17.45 H POC PT PT POC INR INR Sodium 129 L 125 L Chloride 92 L Carbon Dioxide 19 L 19 L BUN 34 H 33 H Creatinine Glucose 166 H Calcium 7.8 L 7.8 L Total Bilirubin AST ALT Alkaline Phosphatase Total Protein Albumin Globulin Albumin/Globulin Ratio Meds: Medications Albuterol/Ipratropium (Ipratropium/Albuterol 3 Ml Ampul.Neb) 3 ml NEB Q4HRT PRN PRN Reason: Wheezing Chlorhexidine Gluconate (Chlorhexidine Gluconate 1 Ml Oral.Talia) 15 ml SWABMOUTH BID LAYLA Dextrose (Dextrose 50% 50 Ml Vial) 0 ml IV UD PRN PRN Reason: Hypoglycemia Diagnostic Test (Pha) (Accu-Chek 1 Each Strip) 1 each FS Q6 [facility] Last Admin: 03/15/21 17:40 Dose: Not Given Documented by: Docusate Sodium (Docusate Sodium 100 Mg Capsule) 100 mg PO BID LAYLA Gabapentin (Gabapentin 100 Mg Capsule) 100 mg PO HS L[facility] Glucose (Dextrose 31 Gm Oral.Susp) 15 gm PO PRN PRN PRN Reason: Hypoglycemia Sodium Chloride (Sodium Chloride 0.9%) 250 mls @ 20 mls/hr IV .[id number] [facility] Last Admin: 03/15/21 17:42 Dose: Not Given Documented by: Dextrose/Sodium Chloride (Dextrose 5%-Ns Iv Solution) 1,000 mls @ 70 mls/hr IV .[id number] [facility] Last Admin: 03/15/21 19:12 Dose: 70 mls/hr Documented by: Meropenem 1 gm/ Sodium (Chloride) 50 mls @ 100 mls/hr IV Q8 [facility]; Protocol Norepinephrine Bitartrate 16 (mg/ Sodium Chloride) 250 mls @ 9.375 mls/hr IV DAILYP PRN; Protocol PRN Reason: Hypotension Last Admin: 03/15/21 18:19 Dose: 10 mcg/min, 9.375 mls/hr Documented by: Insulin Human Lispro (Insulin Lispro 1 Unit/0.01 Ml Unit) 0 unit SQ Q6 [facility]; Protocol Last Admin: 03/15/21 17:40 Dose: Not Given Documented by: Lactulose (Lactulose 20 Gm/30 Ml Oral.Talia) [address] BID LAYLA Lactulose (Lactulose 20 Gm/30 Ml Oral.Talia) 10 gm PO DAILYP PRN PRN Reason: Constipation Metoclopramide HCl (Metoclopramide 10 Mg/2 Ml Vial) 5 mg IV Q6 [facility] Last Admin: 03/15/21 17:40 Dose: Not Given Documented by: Midodrine (Midodrine 5 Mg Tablet) 10 mg PO TID@0800,1200,1700 [facility] Morphine Sulfate (Morphine 2 Mg/Ml Vial) 2 mg IV Q4HP PRN; Protocol PRN Reason: Per Pain Protocol Ondansetron HCl (Ondansetron 4 Mg/2 Ml Vial) 4 mg IV Q4HP PRN; Protocol PRN Reason: Nausea And Vomiting Oxycodone/Acetaminophen (Oxycodone/Apap 5/325mg Tablet) 1 tab PO Q4HP PRN; Protocol PRN Reason: Per Pain Protocol Pantoprazole Sodium (Pantoprazole 40 Mg Vial) 40 mg IV BIDAC [facility] Senna (Sennosides 1 Tablet) 2 tab PO HSP PRN PRN Reason: Constipation Sodium Chloride (0.9 % Sodium Chloride 10 Ml Syringe) 10 ml IV Q12 [facility] Sodium Chloride (0.9 % Sodium Chloride 10 Ml Syringe) 10 ml IV Q8 [facility] Sodium Chloride (0.9 % Sodium Chloride 10 Ml Syringe) 10 ml IV UD PRN PRN Reason: Flush A/P Narrative A/P Narrative: A/P Narrative: Assessment and Plans: * Severe sepsis with suspected spontaneous bacterial peritonitis: Cultures negative so far, status post 3.9 L paracentesis. On midodrine/al bumin/meropene * Acute kidney injury likely sepsis slightly worsened by renal. Continue vasopressors. * Acute hypoxic respiratory failure secondary aspiration pneumonia. On 45% FiO2/BiPAP * Alcoholic cirrhosis with hepatic encephalopathy. On lactulose. * Aspiration pneumonia on antibiotic coverage/aspiration precautions. Plan * Continue vasopressors * Noninvasive ventilation * Lactulose * Extremely poor prognosis high risk mortality Pala 2 score 19 Critical care time spent on management of septic shock/renal failure/hypoxic respiratory failure in excess of 40 minutes Time Spent With Patient Time: Total time spent is greater than 50% in coordination of care (as documented) at patient's floor/unit and/or counseling patient: QUALITY Stroke Symptom Onset Unknown: No VTE Deep Vein Thrombosis/Pulmonary Embolism Present on Admission: No
[2021-03-15] MEDS ORDERED: CHLORHEXIDINE GLUCONATE 1 ML ORAL.SOL SWABMOUTH SCH (21:00)
[2021-03-15] MEDS ORDERED: GABAPENTIN 100 MG CAPSULE PO SCH (21:00)
[2021-03-15] MEDS ORDERED: LACTULOSE 20 GM/30 ML ORAL.SOL PR SCH (21:00)
[2021-03-15] MEDS ORDERED: DOCUSATE SODIUM 100 MG CAPSULE PO SCH (21:00)
[2021-03-15] MEDS ORDERED: MEROPENEM 1 GM in 0.9 % SODIUM CHLORIDE 50 ML IV SCH (22:00)
[2021-03-15] MEDS ORDERED: 0.9 % SODIUM CHLORIDE 10 ML SYRINGE IV SCH (22:00)
[2021-03-16] MEDS: INSULIN LISPRO 1 UNIT/0.01 ML UNIT SQ SCH ×3 (00:35→11:56)
[2021-03-16] MEDS: METOCLOPRAMIDE 10 MG/2 ML VIAL IV SCH ×3 (00:36→11:43)
[2021-03-16] MEDS: MEROPENEM 1 GM in 0.9 % SODIUM CHLORIDE 50 ML IV SCH ×2 (05:24→13:40)
[2021-03-16] MEDS: 0.9 % SODIUM CHLORIDE 10 ML SYRINGE IV SCH ×3 (05:36→23:40)
[2021-03-16] MEDS: PANTOPRAZOLE 40 MG VIAL IV SCH ×2 (06:58→17:15)
[2021-03-16] MEDS: 0.9 % SODIUM CHLORIDE 250 ML IV SCH ×2 (06:59→11:56)
[2021-03-16] MEDS ORDERED: PANTOPRAZOLE 40 MG VIAL IV SCH (07:30)
[2021-03-16] MEDS: MIDODRINE 5 MG TABLET PO SCH ×3 (07:38→17:15)
[2021-03-16] MEDS ORDERED: MIDODRINE 5 MG TABLET PO SCH (08:00)
[2021-03-16] MEDS: morphine 2 MG/ML VIAL IV PRN ×2 (08:08→13:35)
[2021-03-16] MEDS ORDERED: 0.9 % SODIUM CHLORIDE 10 ML SYRINGE IV SCH (09:00)
[2021-03-16] MEDS ORDERED: LACTULOSE 20 GM/30 ML ORAL.SOL PR SCH (09:00)
[2021-03-16] MEDS ORDERED: DOCUSATE SODIUM 100 MG CAPSULE PO SCH (09:00)
[2021-03-16] MEDS ORDERED: CHLORHEXIDINE GLUCONATE 1 ML ORAL.SOL SWABMOUTH SCH (09:00)
[2021-03-16 09:51] LABS: ALT/SGPT 64 U/L (<40); AST/SGOT 177 U/L (<32); Albumin 1.7 gm/dL (3.2-5.2); Albumin/Globulin Ratio 0.8 (1.0-2.3); Alkaline Phosphatase 162 U/L (39-117); Bilirubin,Direct 7.3 mg/dL (<0.3); Bilirubin,Total 9.5 mg/dL (0.1-1.0); Blood Urea Nitrogen 37 mg/dL (6-20); Calcium 7.6 mg/dL (8.6-10.4); Carbon Dioxide 16 mmol/L (22-30); Chloride 113 mmol/L (96-108); Globulin 2.2 gm/dL (2.2-3.7); Glomerular Filtration Rate 30; Glucose 134 mg/dL (70-105); Lactate Dehydrogenase 205 U/L (135-225); Phosphorous 3.5 mg/dL (2.5-4.5); Triglycerides 64 mg/dL (<150); Uric Acid 5.2 mg/dL (2.5-8.0)
[2021-03-16 10:02] LABS: Basophils # (Auto) 0.18 K/mcL (0.00-0.20); Basophils % (Auto) 0.6 % (0.0-2.0); Eosinophils # (Auto) 0 K/mcL (0.00-0.70); Eosinophils % (Auto) 0 % (0.0-7.0); Hematocrit 31.9 % (36.0-48.0); Hemoglobin 11.4 g/dL (12.0-15.0); Lymphocytes # (Auto) 1.18 K/mcL (1.50-4.80); Mean Corpuscular HGB Conc 35.7 g/dL (31.0-36.0); Mean Platelet Volume 11.2 fL (7.4-10.4); Monocytes # (Auto) 1.25 K/mcL (0.10-0.90); Monocytes % (Auto) 4.2 % (1.0-12.0); Neutrophils % (Auto) 91.2 % (38.0-78.0); Platelet Count 70 K/mcL (140-440); RBC 2.75 M/mcL (4.00-5.20); Red Cell Distribution Width 15.9 % (11.5-14.5); WBC 29.7 K/mcL (4.5-11.0)
[2021-03-16] MEDS: DEXTROSE 5%-NS 1,000 ML IV SCH ×2 (10:20→12:31)
--- NOTE | 2021-03-16 10:29 | Internal Med Progress Note ---
SUBJECTIVE Subjective Patient information: Note initiated : 03/16/21 at 10:26 am Service Date, if different from initiated Date: [] Patient: Gina Simms 60 y/o F admitted on 03/11/21 for Hepatic Encephalopathy and SBP. Chief Complaint: [] Interval history: 03/12/21: No bowel movement overnight. Afebrile. Cultures no growth to date. Serum sodium level 125 this morning. Otherwise there was no other major overnight events. Patient is non-verbal. 03/13/21: Levophed drip was started, and as a result patient was being transferred to ICU. Paracentesis was performed and 3.9L ascites fluid removed. Levophed drip was started. Right IVJ central line inserted this morning. No bowel movement overnight. Blood cultures no growth to date. Patient is no nverbal. 03/14/21: Right IVJ central line was inserted on 03/13/21. Levophed drip currently running at 3mcg/min. No bowel movement overnight. KUB suggestive of ileus and cannot rule out bowel obstruction. Blood and ascites cultures no growth to date. Patient is nonverbal. 03/15/21: Levophed drip was off yesterday around 1400. Had multiple bowel movements since yesterday. Been on BiPAP since around midnight. at bedside agreed to switch to DNI DNR. Patient is nonverbal. 03/15-patient currently oliguric. Systolics around 80s. Started on Levophed. Continue vasopressors to maintain MAP at goal and attempt to reverse likely hepatorenal syndrome. Nephrology consult in a.m. 03/16-patient clinically deteriorating. Anuric with less than 150 cc urine output in 24 hours. Currently on vasopressors/midodrine. Nephrology consulted. Discussed with deteriorating status with multiorgan failure including change in mental status/encephalopathy/hypoxia respiratory failure/hepatorenal syndrome with BERNARDO. aware of very high risk mortality. is discussing with family members and expresses desire to initiate comfort care interventions to discontinue all aggressive measures after discussing with family members. High risk mortality Constitutional Vitals: Vital Signs Temp Pulse Resp BP Pulse Ox 97.5 F 105 H 20 85/63 94 03/16/21 09:00 03/16/21 09:02 03/16/21 09:02 03/16/21 09:00 03/16/21 09:02 Period Temp Pulse Resp BP Sys/Bailey Pulse Ox Last 24 Hr 97.5 F-98.3 F 105-112 11-25 72-113/51-90 88-100 Intake and Output 03/15/21 03/16/21 03/16/21 21:59 05:59 13:59 Intake Total 438 20 5713 Output Total 29 124 14 Balance 74 -53 1046 Weight 59.194 kg currently on BiPAP Nonresponsive Abdominal distention with oozing around the paracentesis site Anuric Intake & Output: Intake & Output 03/15/21 03/16/21 03/16/21 21:59 05:59 13:59 Intake Total 309 49 6382 Output Total 29 124 14 Balance 74 -53 1046 Weight 59.194 kg Intake: IV 015 30 5689 Dextrose 5%-Ns IV Solution 1, 1000 000 ml @ 70 mls/hr IV .[id number] [facility] Rx#:[id number] Merrem 1 gm In Sodium Chloride 100 50 0.9% 50 ml @ 100 mls/hr IV Q8 [facility] Rx#:[id number] Levophed 16 mg In Sodium 3 21 Chloride 0.9% 234 ml @ 10 MCG/ MIN 9.375 mls/hr IV DAILYP PRN Rx#:[id number] Tube Feeding 0 0 NG Tube Flush 60 Left Nare 60 Output: Gastric Drainage 100 Left Nare 100 Urine Catheter Amount 29 24 14 Other: Urine Appearance Clear Sediment Uretheral (Vivar) Clear Clear Urine Color Dark Edna Dark Edna Dark Edna [place] Uretheral (Vivar) Dark Edna Dark Edna [place] OBJ DATA Labs CBC & Chem 7: 03/16/21 08:20 03/16/21 08:20 Labs: Abnormal Lab Results 03/16/21 03/16/21 03/15/21 08:20 08:20 04:57 WBC 29.7 H 20.9 H RBC 2.75 L 2.73 L Hgb 11.4 L 10.9 L Hct 31.9 L 32.2 L MCV 116.0 H 117.9 H MCH 41.5 H 39.9 H MCHC RDW 15.9 H 16.1 H Plt Count 70 L 87 L MPV 11.2 H Neut % (Auto) 91.2 H 90.8 H Lymph % (Auto) 4.0 L 3.4 L Lymph # (Auto) 1.18 L 0.72 L Parmer # (Auto) 1.25 H 1.09 H Absolute Neutrophils 27.05 H 18.93 H PT INR Sodium Chloride 113 H Carbon Dioxide 16 L BUN 37 H Creatinine 1.8 H Glucose 134 H Calcium 7.6 L Total Bilirubin 9.5 H Direct Bilirubin 7.3 H GGT 76 H AST 177 H ALT 64 H Alkaline Phosphatase 162 H Total Protein 3.9 L Albumin 1.7 L Globulin Albumin/Globulin Ratio 0.8 L 03/15/21 03/15/21 03/14/21 04:56 04:56 14:02 WBC RBC Hgb Hct MCV MCH MCHC RDW Plt Count MPV Neut % (Auto) Lymph % (Auto) Lymph # (Auto) Parmer # (Auto) Absolute Neutrophils PT 26.2 H INR 2.3 H Sodium Chloride 112 H Carbon Dioxide 14 L 21 L BUN 28 H 25 H Creatinine 0.4 L Glucose 119 H 130 H Calcium 7.5 L 7.7 L Total Bilirubin 8.9 H Direct Bilirubin GGT AST 125 H ALT 49 H Alkaline Phosphatase 151 H Total Protein 3.7 L Albumin 1.8 L Globulin 1.9 L Albumin/Globulin Ratio 0.9 L 03/14/21 03/14/21 03/14/21 07:47 03:21 03:20 WBC 15.7 H RBC 2.53 L Hgb 10.3 L Hct 28.3 L MCV 111.9 H MCH 40.7 H MCHC 36.4 H RDW 15.6 H Plt Count 104 L MPV Neut % (Auto) 83.7 H Lymph % (Auto) 7.7 L Lymph # (Auto) 1.21 L Parmer # (Auto) 1.31 H Absolute Neutrophils 13.14 H PT 24.4 H INR 2.1 H Sodium Chloride Carbon Dioxide BUN 27 H Creatinine 0.5 L Glucose 128 H Calcium 7.6 L Total Bilirubin Direct Bilirubin GGT AST ALT Alkaline Phosphatase Total Protein Albumin Globulin Albumin/Globulin Ratio 03/14/21 03/13/21 03/13/21 03:20 20:00 14:03 WBC RBC Hgb Hct MCV MCH MCHC RDW Plt Count MPV Neut % (Auto) Lymph % (Auto) Lymph # (Auto) Parmer # (Auto) Absolute Neutrophils PT INR Sodium 129 L Chloride Carbon Dioxide 20 L 21 L BUN 27 H 30 H 32 H Creatinine 0.5 L Glucose 138 H 127 H 157 H Calcium 7.7 L 8.1 L 8.0 L Total Bilirubin 9.6 H 9.5 H Direct Bilirubin GGT AST 115 H 112 H ALT 49 H 47 H Alkaline Phosphatase 138 H 127 H Total Protein 4.4 L 4.5 L Albumin 2.3 L 2.5 L Globulin 2.1 L 2.0 L Albumin/Globulin Ratio 03/13/21 10:00 WBC RBC Hgb Hct MCV MCH MCHC RDW Plt Count MPV Neut % (Auto) Lymph % (Auto) Lymph # (Auto) Parmer # (Auto) Absolute Neutrophils PT INR Sodium 128 L Chloride Carbon Dioxide 20 L BUN 34 H Creatinine Glucose 192 H Calcium 7.5 L Total Bilirubin Direct Bilirubin GGT AST ALT Alkaline Phosphatase Total Protein Albumin Globulin Albumin/Globulin Ratio Meds: Medications Albuterol/Ipratropium (Ipratropium/Albuterol 3 Ml Ampul.Neb) 3 ml NEB Q4HRT PRN PRN Reason: Wheezing Chlorhexidine Gluconate (Chlorhexidine Gluconate 1 Ml Oral.Talia) 15 ml SWABMOUTH BID [facility] Last Admin: 03/16/21 07:37 Dose: 15 ml Documented by: Dextrose (Dextrose 50% 50 Ml Vial) 0 ml IV UD PRN PRN Reason: Hypoglycemia Diagnostic Test (Pha) (Accu-Chek 1 Each Strip) 1 each FS Q6 [facility] Last Admin: 03/16/21 05:30 Dose: 1 each Documented by: Docusate Sodium (Docusate Sodium 100 Mg Capsule) 100 mg PO BID [facility] Last Admin: 03/16/21 07:38 Dose: Not Given Documented by: Gabapentin (Gabapentin 100 Mg Capsule) 100 mg PO HS [facility] Glucose (Dextrose 31 Gm Oral.Susp) 15 gm PO PRN PRN PRN Reason: Hypoglycemia Sodium Chloride (Sodium Chloride 0.9%) 250 mls @ 20 mls/hr IV .[id number] [facility] Last Admin: 03/16/21 06:59 Dose: 20 mls/hr Documented by: Dextrose/Sodium Chloride (Dextrose 5%-Ns Iv Solution) 1,000 mls @ 70 mls/hr IV .[id number] [facility] Last Admin: 03/16/21 10:20 Dose: 70 mls/hr Documented by: Meropenem 1 gm/ Sodium (Chloride) 50 mls @ 100 mls/hr IV Q8 [facility]; Protocol Last Infusion: 03/16/21 05:57 Dose: Infused Documented by: Norepinephrine Bitartrate 16 (mg/ Sodium Chloride) 250 mls @ 9.375 mls/hr IV DAILYP PRN; Protocol PRN Reason: Hypotension Insulin Human Lispro (Insulin Lispro 1 Unit/0.01 Ml Unit) 0 unit SQ Q6 [facility]; Protocol Last Admin: 03/16/21 05:33 Dose: Not Given Documented by: Lactulose (Lactulose 20 Gm/30 Ml Oral.Talia) 20 gm HI BID [facility] Last Admin: 03/16/21 07:38 Dose: 20 gm Documented by: Lactulose (Lactulose 20 Gm/30 Ml Oral.Talia) 10 gm PO DAILYP PRN PRN Reason: Constipation Metoclopramide HCl (Metoclopramide 10 Mg/2 Ml Vial) 5 mg IV Q6 [facility] Last Admin: 03/16/21 05:35 Dose: 5 mg Documented by: Midodrine (Midodrine 5 Mg Tablet) 10 mg PO TID@0800,1200,1700 [facility] Last Admin: 03/16/21 07:38 Dose: 10 mg Documented by: Morphine Sulfate (Morphine 2 Mg/Ml Vial) 2 mg IV Q4HP PRN; Protocol PRN Reason: Per Pain Protocol Last Admin: 03/16/21 08:08 Dose: 2 mg Documented by: Ondansetron HCl (Ondansetron 4 Mg/2 Ml Vial) 4 mg IV Q4HP PRN; Protocol PRN Reason: Nausea And Vomiting Oxycodone/Acetaminophen (Oxycodone/Apap 5/325mg Tablet) 1 tab PO Q4HP PRN; Protocol PRN Reason: Per Pain Protocol Pantoprazole Sodium (Pantoprazole 40 Mg Vial) 40 mg IV BIDAC [facility] Last Admin: 03/16/21 06:58 Dose: 40 mg Documented by: Senna (Sennosides 1 Tablet) 2 tab PO HSP PRN PRN Reason: Constipation Sodium Chloride (0.9 % Sodium Chloride 10 Ml Syringe) 10 ml IV Q12 [facility] Last Admin: 03/16/21 08:29 Dose: 10 ml Documented by: Sodium Chloride (0.9 % Sodium Chloride 10 Ml Syringe) 10 ml IV Q8 [facility] Last Admin: 03/16/21 05:36 Dose: Not Given Documented by: Sodium Chloride (0.9 % Sodium Chloride 10 Ml Syringe) 10 ml IV UD PRN PRN Reason: Flush Last Admin: 03/16/21 05:25 Dose: 10 ml Documented by: A/P Narrative A/P Narrative: A/P Narrative: Assessment and Plans: * Severe sepsis with suspected spontaneous bacterial peritonitis: Cultures negative so far, status post 3.9 L paracentesis. On midodrine/a lbumin/meropene * Multifocal pneumonia likely aspiration with white count 29,000. Currently on meropenem * Acute kidney injury likely sepsis slightly worsened by renal. Continue vasopressors. * Acute hypoxic respiratory failure secondary aspiration pneumonia. Deteriorating respiratory status. Currently on noninvasive mechanical ventilation. * Alcoholic cirrhosis with hepatic encephalopathy. Unable to take lactulose due to mental status change Plan * Continue vasopressors/midodrine * Continue meropenem * Continue noninvasive mechanical ventilation * Extremely poor prognosis high risk mortality [place] 2 score 19 * Family conference for care coordination and goals of care. expressed desire for transition to comfort in the next few hours Critical care time spent on management of septic shock/renal failure/hypoxic respiratory failure and family conference/care coordination in excess of 75 minutes Time Spent With Patient Time: Total time spent is greater than 50% in coordination of care (as documented) at patient's floor/unit and/or counseling patient: QUALITY Stroke Symptom Onset Unknown: No VTE Deep Vein Thrombosis/Pulmonary Embolism Present on Admission: No
--- NOTE | 2021-03-16 12:17 | Nephrology Consult Note ---
HPI Data of Consult Patient: new to practice Consult date: 03/16/21 Requesting physician: Valentin Travis Primary Care Provider: Other Provider Consult Narrative cc:: CC: Jesus Torrez MD HPI: I was asked to consult on [age]-year-old woman admitted on March 11 with alcoholic liver disease and cirrhosis having undergone multiple paracentesis procedures in the past. She has been counseled previously to cease any alcohol intake but this is not been her decision. Subsequently she developed altered mental status and was transferred to this institution where she was found to have negative blood cultures, elevated ascites fluid neutrophil count in excess of 500/cc. She also had hyponatremia that was addressed by the primary team in an appropriate manner. Initially her creatinine was normal but there is been the development of oliguria. Meld score was 24 on admission and is now 30 and the family has been counseled on poor survival in this situation. At required ICU care with pressors broad-spectrum antibiotics and other supportive care. She has developed a hyperchloremic non-anion gap metabolic acidosis probably because of saline based resuscitation fluids. Labs have been reviewed and can be found in his chart. Serum sodium Serum creatinine Vital Signs Temp Pulse Resp BP Pulse Ox 03/16/21 11:00 36.4 C 13 90/64 94 03/16/21 10:00 36.4 C 18 86/72 94 03/16/21 09:02 105 H 20 94 03/16/21 09:00 36.4 C 20 85/63 95 03/16/21 08:01 36.5 C 19 96/71 95 03/16/21 07:38 105 H 11 L 99 03/16/21 07:07 98 03/16/21 07:00 36.6 C 11 L 88/71 99 03/16/21 06:45 36.6 C 12 83/65 99 03/16/21 06:00 36.6 C 12 92/66 97 03/16/21 05:00 36.7 C 106 H 14 86/64 97 03/16/21 04:01 36.7 C 13 94/68 100 03/16/21 03:40 16 95 03/16/21 03:01 36.6 C 12 85/72 95 03/16/21 03:00 110 H 15 95 03/16/21 02:01 36.6 C 19 83/61 03/16/21 01:40 94 03/16/21 01:02 36.7 C 19 113/75 95 03/16/21 00:40 112 H 15 92 03/16/21 00:01 36.7 C 20 94/81 93 03/15/21 23:30 14 100 03/15/21 23:02 36.7 C 12 90/66 100 03/15/21 22:15 36.7 C 15 94/63 03/15/21 22:01 36.7 C 14 80/55 97 03/15/21 21:54 107 H 16 99 03/15/21 21:30 18 96 03/15/21 21:00 36.8 C 13 90/67 97 03/15/21 20:30 36.8 C 19 90/68 03/15/21 20:01 36.8 C 21 85/72 92 03/15/21 19:30 36.8 C 14 87/69 03/15/21 19:05 107 H 12 88 L 03/15/21 19:04 107 H 12 90 03/15/21 19:00 36.7 C 18 83/62 93 03/15/21 18:30 36.7 C 15 95/70 92 03/15/21 18:15 92 03/15/21 18:00 36.7 C 21 103/90 03/15/21 17:52 36.7 C 16 85/66 97 03/15/21 17:38 36.8 C 12 03/15/21 17:34 36.8 C 16 81/51 03/15/21 17:32 36.8 C 16 79/52 03/15/21 17:30 36.8 C 12 72/62 03/15/21 17:28 107 H 22 96 03/15/21 17:00 36.8 C 25 H 82/62 03/15/21 16:30 36.8 C 12 86/67 03/15/21 16:13 36.7 C 16 81/58 03/15/21 16:00 36.7 C 12 76/56 03/15/21 15:30 36.7 C 15 81/58 03/15/21 15:23 105 H 12 96 03/15/21 15:00 36.6 C 16 92/62 03/15/21 14:30 36.6 C 24 H 83/54 03/15/21 14:08 94 03/15/21 13:45 36.6 C 14 94/64 03/15/21 13:30 36.6 C 13 91/68 03/15/21 13:15 36.6 C 105 H 14 83/67 95 03/15/21 13:02 36.6 C 13 03/15/21 13:00 36.6 C 13 84/66 03/15/21 12:45 36.6 C 14 94/78 03/15/21 12:41 36.6 C 14 96/78 Intake and Output 03/15/21 03/16/21 03/16/21 21:59 05:59 13:59 Intake Total 047 92 6572 Output Total 29 124 14 Balance 74 -53 2079 Intake: IV 458 20 8895 Dextrose 5%-Ns IV Solution 1, 2000 000 ml @ 70 mls/hr IV .[id number] [facility] Rx#:[id number] Merrem 1 gm In Sodium Chloride 100 50 0.9% 50 ml @ 100 mls/hr IV Q8 [facility] Rx#:[id number] Levophed 16 mg In Sodium 3 21 34 Chloride 0.9% 234 ml @ 10 MCG/ MIN 9.375 mls/hr IV DAILYP PRN Rx#:[id number] Tube Feeding 0 0 NG Tube Flush 60 Left Nare 60 Output: Gastric Drainage 100 Left Nare 100 Urine Catheter Amount 29 24 14 Other: Urine Appearance Clear Sediment Uretheral (Vivar) Clear Clear Urine Color Dark Edna Dark Edna Dark Edna [place] Uretheral (Vivar) Dark Edna Dark Edna [place] Weight 59.194 kg 59.194 kg Patient Weight 03/17/21 05:59 Weight 59.194 kg Laboratory Tests 03/12/21 00:10 Urine Color Edna Urine pH 5.0 Ur Specific Rule 1.026 Urine Protein 30 A Urine Glucose (UA) Negative Urine Ketones Negative Urine Occult Blood >=1.0 A Urine Nitrate Negative Urine Bilirubin Negative Urine Urobilinogen 4.0 A Ur Leukocyte Esterase Negative Urine RBC 63 H Urine WBC 8 H Ur Squamous Epith Cells 8 H Urine Bacteria None Hyaline Casts 36 H Urine Mucus Many A Current Medications Albuterol/Ipratropium (Ipratropium/Albuterol 3 Ml Ampul.Neb) 3 ml NEB Q4HRT PRN PRN Reason: Wheezing Chlorhexidine Gluconate (Chlorhexidine Gluconate 1 Ml Oral.Talia) 15 ml SWABMOUTH BID [facility] Last Admin: 03/16/21 07:37 Dose: 15 ml Documented by: Dextrose (Dextrose 50% 50 Ml Vial) 0 ml IV UD PRN PRN Reason: Hypoglycemia Diagnostic Test (Pha) (Accu-Chek 1 Each Strip) 1 each FS Q6 [facility] Last Admin: 03/16/21 11:43 Dose: 1 each Documented by: Docusate Sodium (Docusate Sodium 100 Mg Capsule) 100 mg PO BID [facility] Last Admin: 03/16/21 07:38 Dose: Not Given Documented by: Gabapentin (Gabapentin 100 Mg Capsule) 100 mg PO HS [facility] Glucose (Dextrose 31 Gm Oral.Susp) 15 gm PO PRN PRN PRN Reason: Hypoglycemia Sodium Chloride (Sodium Chloride 0.9%) 250 mls @ 20 mls/hr IV .[id number] [facility] Last Admin: 03/16/21 11:56 Dose: Not Given Documented by: Dextrose/Sodium Chloride (Dextrose 5%-Ns Iv Solution) 1,000 mls @ 70 mls/hr IV .[id number] [facility] Last Admin: 03/16/21 12:31 Dose: Not Given Documented by: Meropenem 1 gm/ Sodium (Chloride) 50 mls @ 100 mls/hr IV Q8 [facility]; Protocol Last Infusion: 03/16/21 05:57 Dose: Infused Documented by: Norepinephrine Bitartrate 16 (mg/ Sodium Chloride) 250 mls @ 9.375 mls/hr IV DAILYP PRN; Protocol PRN Reason: Hypotension Last Admin: 03/16/21 11:37 Dose: 4 mcg/min, 3.75 mls/hr Documented by: Insulin Human Lispro (Insulin Lispro 1 Unit/0.01 Ml Unit) 0 unit SQ Q6 [facility]; Protocol Last Admin: 03/16/21 11:56 Dose: Not Given Documented by: Lactulose (Lactulose 20 Gm/30 Ml Oral.Talia) 20 gm NE BID [facility] Last Admin: 03/16/21 07:38 Dose: 20 gm Documented by: Lactulose (Lactulose 20 Gm/30 Ml Oral.Talia) 10 gm PO DAILYP PRN PRN Reason: Constipation Metoclopramide HCl (Metoclopramide 10 Mg/2 Ml Vial) 5 mg IV Q6 [facility] Last Admin: 03/16/21 11:43 Dose: 5 mg Documented by: Midodrine (Midodrine 5 Mg Tablet) 10 mg PO TID@0800,1200,1700 [facility] Last Admin: 03/16/21 11:43 Dose: 10 mg Documented by: Morphine Sulfate (Morphine 2 Mg/Ml Vial) 2 mg IV Q4HP PRN; Protocol PRN Reason: Per Pain Protocol Last Admin: 03/16/21 08:08 Dose: 2 mg Documented by: Ondansetron HCl (Ondansetron 4 Mg/2 Ml Vial) 4 mg IV Q4HP PRN; Protocol PRN Reason: Nausea And Vomiting Oxycodone/Acetaminophen (Oxycodone/Apap 5/325mg Tablet) 1 tab PO Q4HP PRN; Protocol PRN Reason: Per Pain Protocol Pantoprazole Sodium (Pantoprazole 40 Mg Vial) 40 mg IV BIDAC [facility] Last Admin: 03/16/21 06:58 Dose: 40 mg Documented by: Senna (Sennosides 1 Tablet) 2 tab PO HSP PRN PRN Reason: Constipation Sodium Chloride (0.9 % Sodium Chloride 10 Ml Syringe) 10 ml IV Q12 [facility] Last Admin: 03/16/21 08:29 Dose: 10 ml Documented by: Sodium Chloride (0.9 % Sodium Chloride 10 Ml Syringe) 10 ml IV Q8 [facility] Last Admin: 03/16/21 05:36 Dose: Not Given Documented by: Sodium Chloride (0.9 % Sodium Chloride 10 Ml Syringe) 10 ml IV UD PRN PRN Reason: Flush Last Admin: 03/16/21 05:25 Dose: 10 ml Documented by: Based on today's MELD score, 3 mo survival is ~50%. Clinically, the mortality is even higher given pressor dependence and acute oliguric ARF, now approaching a hospital mortaity of ~75% My only suggestion would be to check urine Na and add octreotide if family wishes continued intervension. Dialysis seems futile in the case and would not be offered w/o TIPS and Liver Tx consideration Review of Systems ROS unobtainable: due to mental status PFSH PFSH All Active Problems (Updated 03/16/21 @ 14:01 by David Harvey MD) Hepatic encephalopathy (Acute) Alcoholic cirrhosis of liver with ascites (Acute) Hypokalemia (Acute) Hyponatremia (Acute) SBP (spontaneous bacterial peritonitis) (Acute) Coagulopathy (Acute) Noncompliance with medication regimen (Acute) Clinical sepsis (Acute) Stage 1 acute kidney injury (Acute) Septic shock (Acute) Ileus (Acute) Aspiration pneumonia (Acute) MEDS/ALLERGIES Home Medications and Allergies Home Medications Medication Instructions Recorded Confirmed Type furosemide 40 mg PO DAILY 03/12/21 03/12/21 History gabapentin 100 mg PO HS 03/12/21 03/12/21 History potassium chloride 20 meq PO TID 03/12/21 03/12/21 History pregabalin 150 mg PO BID 03/12/21 03/12/21 History spironolactone 100 mg PO DAILY 03/12/21 03/12/21 History Allergies Allergy/AdvReac Type Severity Reaction Status Date / Time codeine AdvReac Mild Nausea Verified 03/12/21 11:51 Penicillins AdvReac Unknown Unknown Verified 03/12/21 11:51 sulfate ion AdvReac Unknown Unknown Verified 03/12/21 11:51 Physical Examination Vital Signs Vital signs: Temp Pulse Resp BP Pulse Ox 36.4 C 105 H 13 90/64 94 03/16/21 11:00 03/16/21 09:02 03/16/21 11:00 03/16/21 11:00 03/16/21 11:00 General Appearance General appearance: cachectic, frail and comatose Exam Narrative: Jaundiced EENT EENT: mucous membranes dry and scleral icterus Respiratory Respiratory: course breath sounds Cardiovascular Cardiology: rapid rhythm Gastrointestinal Gastrointestinal: distended (Ascites) Neurologic Neurologic: disoriented (Obtunded) Psychiatric Psychiatric: mood/affect appropriate (Cannot assess) Results Lab Results Result Diagrams: 03/16/21 08:20 03/16/21 08:20 Lab results: Most recent lab results Calcium 7.6 mg/dL (8.6-10.4) L 03/16/21 08:20 Phosphorus 3.5 mg/dL (2.5-4.5) 03/16/21 08:20 Magnesium 1.9 mg/dL (1.6-2.5) 03/16/21 08:20 A/P Assessment and plan (1) Hepatic encephalopathy: Status: Acute Comment: Currently comatose (2) Alcoholic cirrhosis of liver with ascites: Status: Acute Comment: Meld score up to 30 and expected to climb. With multiorgan failure in the ICU expected mortality is greater than 90%. Hospice as requested by the seemed appropriate. (3) Stage 1 acute kidney injury: Status: Acute Comment: Prerenal azotemia, ATN, hepatorenal syndrome. This is the differential diagnosis. No further work-up as family has chosen comfort measures given the high morbidity and mortality of multisystem organ failure and alcoholic cirrhosis Time Spent With Patient Time: Total time spent is greater than 50% in coordination of care (as documented) at patient's floor/unit and/or counseling patient:
[2021-03-16] MEDS ORDERED: LORazepam 2 MG/ML VIAL IV PRN (17:11)
[2021-03-16] MEDS ORDERED: ONDANSETRON 4 MG/2 ML VIAL IV PRN (17:11)
[2021-03-16] MEDS ORDERED: LACTOPEROXI/GLUC OXID/POT THIO 1 EACH GEL..EA. TOPICAL PRN (17:11)
[2021-03-16] MEDS ORDERED: ONDANSETRON 4 MG ODT TABLET SL PRN (17:11)
[2021-03-16] MEDS ORDERED: ALBUTEROL SULFATE 2.5 MG/3 ML NEBULIZER NEB PRN (17:11)
[2021-03-16] MEDS ORDERED: HYDROmorphone 1 MG/ML SYRINGE IV PRN (17:11)
[2021-03-16] MEDS ORDERED: SCOPOLAMINE 1 PATCH PATCH TOPICAL SCH (17:15)
[2021-03-16] MEDS ORDERED: GABAPENTIN 100 MG CAPSULE PO SCH (21:00)
[2021-03-17] MEDS: 0.9 % SODIUM CHLORIDE 10 ML SYRINGE IV SCH ×2 (06:37→14:14)
--- NOTE | 2021-03-17 10:03 | Death Note ---
Discharge Sum: Prov Provider Patient information: Note initiated : 03/17/21 at 9:59 am Service Date, if different from initiated Date: [] Patient: Gina Simms a 60 y/o F admitted on 03/11/21 for Hepatic Encephalopathy and SBP. summary Ms. Simms is a 60 year old F history of recently diagnosed alcoholic cirrhosis, presenting with altered mental status, increased lethargy, and abdominal distention with pain. Patient has a chronic history of alcoholism and was recently diagnosed with alcoholic hepatitis on February 20, 2021. Extensive imaging modalities including MRI of the abdomen was done and no tumors or lesions were found. Patient was being referred to GI DrSamira And she refused to stop drinking alcohol upon recommendations by the GI specialist. She has been receiving multiple episodes of therapeutic paracentesis for her symptomatic ascites in the last episode was done 2 days ago. Today she was found by family member to have altered mental status, increasing lethargy, and she was also complaining of abdominal distention and pain. Last reported alcohol consumption's was couple days ago. She does not presented to outside ER and the working diagnosis of hepatic encephalopathy with spontaneous bacterial peritonitis was made. Serum ammonia level, right blood cell count, lactic acid, procalcitonin, serum creatinine were all found to be elevated with the exact number documented in the transfer paperwork. Serum sodium was reported to be in the 120s range. She was initially hypotensive with blood pressure in the 70s over 50s mmHg range, and after 30 cc/kg NS fluid boluses was given, her blood pressures response now back to the 90s over 70s mmHg range. Admission request made due to bed unavailability and the lack of capacity to perform therapeutic/diagnostic paracentesis. 03/12/21: No bowel movement overnight. Afebrile. Cultures no growth to date. Serum sodium level 125 this morning. Otherwise there was no other major overnight events. Patient is non-verbal. 03/13/21: Levophed drip was started, and as a result patient was being transferred to ICU. Paracentesis was performed and 3.9L ascites fluid removed. Levophed drip was started. Right IVJ central line inserted this morning. No bowel movement overnight. Blood cultures no growth to date. Patient is nonverbal. 03/14/21: Right IVJ central line was inserted on 03/13/21. Levophed drip currently running at 3mcg/min. No bowel movement overnight. KUB suggestive of ileus and cannot rule out bowel obstruction. Blood and ascites cultures no growth to date. Patient is nonverbal. 03/15/21: Levophed drip was off yesterday around 1400. Had multiple bowel movements since yesterday. Been on BiPAP since around midnight. at bedside agreed to switch to DNI DNR. Patient is nonverbal. 03/15-patient currently oliguric. Systolics around 80s. Started on Levophed. Continue vasopressors to maintain MAP at goal and attempt to reverse likely hepatorenal syndrome. Nephrology consult in a.m. 03/16-patient clinically deteriorating. Anuric with less than 150 cc urine output in 24 hours. Currently on vasopressors/midodrine. Nephrology consulted. Discussed with deteriorating status with multiorgan failure including change in mental status/encephalopathy/hypoxia respiratory failure/hepatorenal syndrome with BERNARDO. aware of very high risk mortality. is discussing with family members and expresses desire to initiate comfort care interventions to discontinue all aggressive measures after discussing with family members. High risk mortality Extended family conference with patient grandniece and Granddaughter/. Family expresses desire to transition Jeannie to comfort measures clearly understanding the risk of in the setting of multiorgan failure and she would likely pass away in the next few hours/day. 03/17-patient due to progressive hypoxic respiratory failure/worsening sepsis/endorgan failure including renal and hepatic failure at 9:20 AM this morning. Patient pulseless/fixed dilated pupils/no breathing activity and negative doll's eye response. Cause of * Severe sepsis with multiple organ failure secondary to pneumonia and bacterial peritonitis * Multifocal pneumonia * Acute kidney injury/hepatorenal syndrome * Acute hypoxic respiratory failure * Alcoholic cirrhosis with hepatic encephalopathy Primary care physician: Other Provider Consults: 03/14/21 09:19 Consult to Physician [CONS] Routine Comment: ileus vs sbo Consulting Provider: Abdirizak Olson Reason For Exam: Physician to Consult 03/16/21 08:48 Consult to Physician [CONS] Routine Comment: BERNARDO/? HRS Consulting Provider: David Harvey Reason For Exam: Physician to Consult Discharge Sum: Diag Contributing Factors (1) Hepatic encephalopathy: (2) Alcoholic cirrhosis of liver with ascites: (3) Stage 1 acute kidney injury: Discharge Sum: Summary Date and Time Date of admission: 03/11/21 20:46 Additional Data Attending physician: Jesus Torrez MD
== END 2021-03-17 09:20 | disposition expired | DRG 871 ==
LOC: ICU 20:46 → MEDSUR 03-16 19:41
PROVIDERS: ADMIT Internal Medicine; ATTEND Internal Medicine